=== PATIENT | female | born 1955 | race Caucasian/White ===

== ENCOUNTER → 2021-12-30 12:51 | Outpatient (BNVA) | payer MEDICARE, SELFPAY | PROVIDERS: PCP Internal Medicine; Visit Provider Physician Assistant | DX: E66.9 Obesity, unspecified (principal); K21.9 Gastro-esophageal reflux disease without esophagitis; I10 Essential (primary) hypertension; F41.8 Other specified anxiety disorders; Z98.84 Bariatric surgery status; Z68.38 Body mass index [BMI] 38.0-38.9, adult | CPT/HCPCS: 99202 ==

== ENCOUNTER → 2022-01-14 08:03 | Outpatient (BNVA) | payer MEDICARE, SELFPAY | PROVIDERS: PCP Internal Medicine; Visit Provider Physician Assistant | DX: K95.09 Other complications of gastric band procedure (principal) | CPT/HCPCS: Q3014 ==

== ENCOUNTER 2022-01-18 12:36 | Day surgery (SDC) | payer MEDICARE, SELFPAY ==
--- NOTE | 2022-01-18 12:56 | MHC.SHP ---
Pre-Procedural Eval Section A Date of Service: 01/18/22 The patient is an INPATIENT: No The History & Physical has been completed within 30 days and I have reviewed it.: Yes Section B Chief Complaint: gastric band complications Relevant Family History (Specify if Yes): No Relevant Social History: None Present Medications: None Medical History: No relevant PMH History of Previous Operations: Relevant previous surgery/procedure and date(s) (lap gastric band) Allergies: Allergies Allergy/AdvReac Type Severity Reaction Status Date / Time No Known Allergies Allergy Verified 12/30/21 14:03 Review of Systems Sugical H&P ROS: Negative: Constitution, Cardiovascular, Respiratory, Neurological, Psychiatric, Hem-Onc, Allergic/Immunologic, Gastrointestinal, Genitourinary, Musculoskeletal, Integumentary, Endocrine and Eyes/Ears/Nose/Throat Exam Surgical H&P Exam: Normal: HEENT, Normal: Heart, Normal: Lungs, Normal: Extremities, Normal: Abdomen, Normal: Skin and Normal: Neurological Plan Diagnosis/Plan: Unchanged (EGD to assess for band slippage and band erosion. The possibility of bleeding or perforation were disucssed with the patient) I have reviewed the history and physical and performed a pertinent physical examination on my patient. No changes have occurred unless specified.
[2022-01-18 13:45] VITALS: BMI 36.8
[2022-01-18 13:47] VITALS: BP 131/71; PULSE 87; RESP 16; TEMP 36.1; O2SAT 100
[2022-01-18] MEDS: Lactated Ringers 1,000 ML 80 ML IVCONT (14:03)
--- NOTE | 2022-01-18 14:04 | P.CONAN_ITS ---
Documented by User: Enzo Osei MD 01/18/22 14:07 HPI - Anesthesia Eval Consult details Narrative: 66 F for EGD PMFSH Active Problems Active Problems: All Active Problems (Updated 01/14/22 @ 11:00 by Anca Mcduffie PA-C) Gastric band malfunction (Acute) GERD (gastroesophageal reflux disease) (Acute) H/O laparoscopic adjustable gastric banding (Acute) Anxious depression (Acute) HTN (hypertension), benign (Acute) Obesity (Acute) Past Medical History Functional capacity: independent ambulation Family History Family History (Updated 12/30/21 @ 13:41 by Tammie Lindsey) Mother Hypertension Glaucoma Brother History of heart artery stent Brother History of heart artery stent Brother History of heart artery stent Family history of problems with anesthesia: No Surgical History Surgical History (Updated 12/30/21 @ 14:15 by Anca Mcduffie PA-C) H/O laparoscopic adjustable gastric banding History of cholecystectomy Social History Social History (Updated 12/30/21 @ 13:39 by Tammie Lindsey) Alcohol intake: former Patient Tobacco Use Status: Never used Tobacco Use of substances other than those prescribed or required for medical reasons: No Advance Directives: No Advance Directives Information Provided: Yes Meds Allergies Allergy/AdvReac Type Severity Reaction Status Date / Time No Known Allergies Allergy Verified 01/18/22 13:44 Active Medications: Current Medications Lactated Ringer's (Lr) 1,000 mls @ 80 mls/hr IVCONT .[id number] AUBREY Last Admin: 01/18/22 14:03 Dose: 80 mls/hr Documented by: Home Medications Medication Instructions Recorded Confirmed Last Taken Type bupropion HCl 300 mg 24 hr tablet, 300 mg PO QAM 12/30/21 01/14/22 Unknown History extended release (Wellbutrin XL) famotidine 40 mg tablet (Pepcid) 40 mg PO DAILY 12/30/21 01/14/22 Unknown History ferrous sulfate 325 mg (65 mg 325 mg PO DAILY 12/30/21 01/14/22 01/15/22 History iron) tablet (Feosol) hydrochlorothiazide 25 mg tablet 25 mg PO DAILY 12/30/21 01/14/22 Unknown History lansoprazole 30 mg capsule,delayed 30 mg PO DAILY 12/30/21 01/14/22 Unknown History release (Prevacid) losartan 100 mg tablet 100 mg PO DAILY 12/30/21 01/14/22 Unknown History losartan 100 1 tab PO DAILY 01/14/22 01/14/22 Unknown History mg-hydrochlorothiazide 25 mg tablet Exam Exam Date and Time: January 18, 2022 1404 Height,Weight and Vital Signs: Height 5 ft 4 in Weight 97.522 kg Last Vital Signs Temp 97.0 F 01/18/22 13:47 Pulse 87 01/18/22 13:47 Resp 16 01/18/22 13:47 BP 131/71 01/18/22 13:47 Pulse Ox 100 01/18/22 13:47 Airway Mallampati Class: II TM Dist: >3cm Loose/Missing/Broken Teeth: Yes Assessment and Plan Assessment Anesthesia Assessment: Anesthesia Plan Discussed Final Anesthetic Review Family History of Problems with Anesthesia: No ASA Class: III Final Preanesthetic Review: Meds/Allgs Chart Reviewed and Anes Risks/Benef Reviewed Patient Risk: High Procedure Risk: Intermediate Anesthetic Plan Anesthetic Plan: MAC: Disposition: Standard PACU Documented by User: Comfort Purcell MD 01/18/22 14:22 [facility] Family History Family History (Updated 12/30/21 @ 13:41 by Tammie Lindsey) Mother Hypertension Glaucoma Brother History of heart artery stent Brother History of heart artery stent Brother History of heart artery stent Surgical History Surgical History (Updated 12/30/21 @ 14:15 by Anca Mcduffie PA-C) H/O laparoscopic adjustable gastric banding History of cholecystectomy History of Problems with Anesthesia: No Social History Social History (Updated 12/30/21 @ 13:39 by Tammie Lindsey) Alcohol intake: former Patient Tobacco Use Status: Never used Tobacco Use of substances other than those prescribed or required for medical reasons: No Advance Directives: No Advance Directives Information Provided: Yes Meds Allergies Allergy/AdvReac Type Severity Reaction Status Date / Time No Known Allergies Allergy Verified 01/18/22 13:44 Home Medications Medication Instructions Recorded Confirmed Last Taken Type bupropion HCl 300 mg 24 hr tablet, 300 mg PO QAM 12/30/21 01/14/22 Unknown History extended release (Wellbutrin XL) famotidine 40 mg tablet (Pepcid) 40 mg PO DAILY 12/30/21 01/14/22 Unknown History ferrous sulfate 325 mg (65 mg 325 mg PO DAILY 12/30/21 01/14/22 01/15/22 History iron) tablet (Feosol) hydrochlorothiazide 25 mg tablet 25 mg PO DAILY 12/30/21 01/14/22 Unknown History lansoprazole 30 mg capsule,delayed 30 mg PO DAILY 12/30/21 01/14/22 Unknown History release (Prevacid) losartan 100 mg tablet 100 mg PO DAILY 12/30/21 01/14/22 Unknown History losartan 100 1 tab PO DAILY 01/14/22 01/14/22 Unknown History mg-hydrochlorothiazide 25 mg tablet Exam Airway Neck ROM: Full Heart: rrr Lungs: cta Assessment and Plan Assessment Anesthesia Assessment: Anesthesia Plan Discussed and Chart Reviewed Final Anesthetic Review History of Problems with Anesthesia: No NPO: Yes Patient Risk: Intermediate
[2022-01-18 15:10] VITALS: BP 124/73; PULSE 72; RESP 16; TEMP 36.3; O2SAT 97
--- NOTE | 2022-01-18 15:11 | PM.OP ---
Brief Operative Note Date of Service: 01/18/22 Pre-op diagnosis: Vomiting and possible gastric band erosion Post-op diagnosis: same (1) Significant gastric band slippage, 2) esophagitis grade 4, 3) gastric polyps) Procedure: PREOPERATIVE DIAGNOSIS: GERD, vomiting and possible gastric band erosion, s/p lap band POSTOPERATIVE DIAGNOSIS: ?Same as above. 1) Significant gastric band slippage, 2) Esophagitis grade IV, 3) multiple gastric polyps, 4) gastric outlet obstruction at the band site PROCEDURE: [id number]-kwehnddvcamb with biopsies Surgeon: ?Malcolm Dorman M.D.. Ph.D. Patient Account Analyst: None ? Anesthesia: IV sedation Estimated blood loss: ?Minimal FINDINGS AND PROCEDURE: ? OPERATIVE INDICATIONS: ?The patient is a 66 year old female known to me who underwent a laparoscopic gastric band By Dr. Garsia. The patient had poor weight loss so far and has been complaining of severe GERD, and vomiting. Previous work-up is suggestive of band slippage and possible band erosion. Based on this information I recommended an upper endoscopy to evaluate the patient's symptoms. Risks and complications of the surgery were discussed with the patient in advance particularly the possibility of perforation or bleeding that may require surgical intervention. The patient understood the risks and was in agreement with the plan. ? PROCEDURE: After informed consent was obtained by the patient, the patient was ?transferred to the Operating Room and was placed in the supine position.? After successful induction of IV sedation, a mouth block was inserted and the patient was placed in the left lateral decubitus position. An upper endoscopy was performed next, the oropharynx appeared within the normal limits. The esophagus had evidence of chronic inflammation and there was a significant amount of fluid in a good portion of it suggestive of distal obstruction. This fluid was aspirated. A biopsy was obtained. There was no hiatal hernia. The z-line was irregular with tongues of gastric mucosa protruding to the esophagus in more than 75% of circumference.?A biopsy was obtained from the GE junction. The stomach was entered and it appeared to be of normal size. There was no band erosion, ?gastritis and no ulcer. However the band was not in the right position with a significant portion of stomach above the band. The distal stomach has numerous gastric polyps and one of the most prominent ones was biopsied. An additional biopsy was obtained from the antrum. The scope was advanced into the duodenum which appeared to be normal as well. Retroflexion was performed and again no band erosion was seen. There was no significant bleeding from any of the biopsy sites. At that point the duodenum and the stomach were decompressed and the scope was withdrawn from the patient's mouth. The patient was awaken and was transferred in stable condition to the Recovery Room for further care. I was present and performed all steps of the procedure. There were no residents to assist with this case. Malcolm Dorman M.D., Ph.D. Surgeon: Maynor Dorman MD Anesthesia: MAC Was an Patient Account Analyst used for this Procedure?: No Estimated blood loss (mL): 0 IV fluids (mL): 400 Urine output (mL): 0 (No Weems to record) Pathology: other (1) esophagus x1, 2) GE junctionx1, 3) proximal gastric pouch x1, 4) gastric polyp x1, 5) antrum x1) Condition: stable Disposition: PACU
[2022-01-18 15:25] VITALS: BP 116/71; PULSE 71; RESP 16; TEMP 36.3; O2SAT 100
== END 2022-01-18 15:23 | disposition home or self-care (01) ==
PROVIDERS: PCP Internal Medicine; Visit Provider Surgery
PROC: 0DJ08ZZ Inspection of Upper Intestinal Tract, Via Natural or Artificial Opening Endoscopic (ICD-10-PCS; CPT 43235; principal; 2022-01-18 14:00)
DX: K95.09 Other complications of gastric band procedure (principal); Y73.8 Miscellaneous gastroenterology and urology devices associated with adverse incidents, not elsewhere classified; Y84.9 Medical procedure, unspecified as the cause of abnormal reaction of the patient, or of later complication, without mention of misadventure at the time of the procedure; R11.10 Vomiting, unspecified; K21.9 Gastro-esophageal reflux disease without esophagitis; K20.80 Other esophagitis without bleeding; K31.7 Polyp of stomach and duodenum; K31.1 Adult hypertrophic pyloric stenosis; Z79.899 Other long term (current) drug therapy; Z98.84 Bariatric surgery status; Z90.49 Acquired absence of other specified parts of digestive tract
CPT/HCPCS: 43239; 88305; 88342

== ENCOUNTER → 2022-01-22 10:58 | Outpatient (BNVA) | payer MEDICARE, SELFPAY | PROVIDERS: PCP Internal Medicine; Visit Provider Surgery | DX: Z13.89 Encounter for screening for other disorder (principal) | CPT/HCPCS: Q3014 ==

== ENCOUNTER 2022-01-25 08:48 | Day surgery (SDC) | payer MEDICARE, SELFPAY ==
--- NOTE | 2022-01-22 14:57 | P.HPSUR_ITS ---
Pre-Procedural Eval Section A Date of Service: 01/22/22 The patient is an INPATIENT: No The History & Physical has been completed within 30 days and I have reviewed it.: Yes Section B Chief Complaint: Other complications of gastric band procedure Relevant Family History (Specify if Yes): No Relevant Social History: None Present Medications: None Medical History: No relevant PMH History of Previous Operations: Relevant previous surgery/procedure and date(s) (lap band) Allergies: Allergies Allergy/AdvReac Type Severity Reaction Status Date / Time No Known Allergies Allergy Verified 01/22/22 14:38 Review of Systems Sugical H&P ROS: Negative: Constitution, Cardiovascular, Respiratory, Neurological, Psychiatric, Hem-Onc, Allergic/Immunologic, Genitourinary, Musculoskeletal, Integumentary, Endocrine and Eyes/Ears/Nose/Throat and Yes, Specify: Gastrointestinal (GERD/Vomiting) Exam Surgical H&P Exam: Normal: HEENT, Normal: Heart, Normal: Lungs, Normal: Ext remities, Normal: Abdomen, Normal: Skin and Normal: Neurological Plan Diagnosis/Plan: Unchanged I have reviewed the history and physical and performed a pertinent physical examination on my patient. No changes have occurred unless specified.
[2022-01-23 09:55] LABS: MANUAL DIFF FLAG NO
[2022-01-23 10:05] LABS: Basophils Percent Auto 0.5 % (0-2); Eosinophils Absolute Auto 0.1 X10*3/uL (0.0-0.4); Eosinophils Percent Auto 1.6 % (0-4); Hematocrit 36.8 % (37.0-47.0); Hemoglobin 11.3 g/dl (12.0-16.0); Imm Gran Abs Auto 0.02 X10*3/uL (0.00-0.03); Imm Gran Pct Auto 0.3 % (0.0-0.4); Lymphocytes Absolute Auto 1.6 X10*3/uL (1.2-4.9); Lymphocytes Percent Auto 27.9 % (20-40); Mean Corpuscular HGB Conc 30.7 g/dl (31.0-35.0); Mean Corpuscular Hemoglobin 23.3 pg (27.0-33.0); Mean Corpuscular Volume 75.7 fL (80.0-98.0); Mean Platelet Volume 9.2 fL (9.4-12.3); Monocytes Absolute Auto 0.3 X10*3/uL (0.1-1.2); Monocytes Percent Auto 5.9 % (2-11); Neutrophils Absolute Auto 3.7 x10*3/uL (2.0-8.3); Neutrophils Percent Auto 63.8 % (45-73); Platelet Count 382 X10*3/uL (160-400); Red Blood Count 4.86 X10*6/uL (4.20-5.50); White Blood Count 5.8 X10*3/uL (4.8-10.8)
[2022-01-23 10:08] LABS: Prothrombin Time 11.5 SEC (9.9-13.0)
[2022-01-23 10:29] LABS: Alanine Aminotransferase 13 U/L (0-31); Alkaline Phosphatase 86 U/L (39-117); Anion Gap 14 (12-20); Aspartate Amino Transferase 17 U/L (5-31); Bilirubin Total 0.4 mg/dL (0.0-1.0); Blood Urea Nitrogen 13 mg/dL (9-16); Calcium 9.4 mg/dL (8.4-10.2); Carbon Dioxide 24 mmol/L (22-29); Chloride 104 mmol/L (96-108); Estimated Glomerular Filt Rate 55; Glucose Random 101 mg/dL (60-115); Potassium 3.3 mmol/L (3.3-5.1); Sodium 139 mmol/L (135-145); Total Protein 6.9 g/dL (6.5-8.0)
[2022-01-25] VITALS (12 sets, daily range): BP systolic 106–137; BP diastolic 52–81; PULSE 73–89; RESP 15–16; TEMP 36.3–36.6; O2SAT 91–99; BMI 36.8
[2022-01-25 09:31] LABS: COVID-19 Test Negative (Negative)
--- NOTE | 2022-01-25 10:50 | HO.ANESPROP2 ---
HPI - Anesthesia Eval Consult details Narrative: Laparascopic lap band removal [facility] Active Problems Active Problems: All Active Problems (Updated 01/23/22 @ 12:17 by Maynor Dorman MD) Hypokalemia (Acute) Gastric band malfunction (Acute) GERD (gastroesophageal reflux disease) (Acute) H/O laparoscopic adjustable gastric banding (Acute) Anxious depression (Acute) HTN (hypertension), benign (Acute) Obesity (Acute) Family History Family History (Updated 12/30/21 @ 13:41 by Tammie Lindsey) Mother Hypertension Glaucoma Brother History of heart artery stent Brother History of heart artery stent Brother History of heart artery stent Family history of problems with anesthesia: No Surgical History Surgical History (Updated 12/30/21 @ 14:15 by Anca Mcduffie PA-C) H/O laparoscopic adjustable gastric banding History of cholecystectomy History of Problems with Anesthesia: No Social History Social History (Updated 12/30/21 @ 13:39 by Tammie Lindsey) Alcohol intake: former Patient Tobacco Use Status: Never used Tobacco Are you DNR?: No Advance Directives: No Advance Directives Information Provided: Yes Meds Allergies Allergy/AdvReac Type Severity Reaction Status Date / Time No Known Allergies Allergy Verified 01/22/22 14:38 Active Medications: Current Medications Lactated Ringer's (Lr) 1,000 mls @ 100 mls/hr IVCONT .Q10H ON LICENSE OF [facility] Home Medications Medication Instructions Recorded Confirmed Last Taken Type bupropion HCl 300 mg 24 hr tablet, 300 mg PO QAM 12/30/21 01/22/22 Unknown History extended release (Wellbutrin XL) famotidine 40 mg tablet (Pepcid) 40 mg PO DAILY 12/30/21 01/22/22 Unknown History ferrous sulfate 325 mg (65 mg 325 mg PO DAILY 12/30/21 01/22/22 01/15/22 History iron) tablet (Feosol) hydrochlorothiazide 25 mg tablet 25 mg PO DAILY 12/30/21 01/22/22 Unknown History lansoprazole 30 mg capsule,delayed 30 mg PO DAILY 12/30/21 01/22/22 Unknown History release (Prevacid) losartan 100 mg tablet 100 mg PO DAILY 12/30/21 01/22/22 Unknown History losartan 100 1 tab PO DAILY 01/14/22 01/22/22 01/25/22 History mg-hydrochlorothiazide 25 mg tablet Exam Exam Date and Time: January 25, 2022 1050 Height,Weight and Vital Signs: Height 5 ft 4 in Weight 97.522 kg Last Vital Signs Temp 97.6 F 01/25/22 09:14 Pulse 89 01/25/22 09:14 Resp 16 01/25/22 09:14 BP 137/81 01/25/22 09:14 Pulse Ox 97 01/25/22 09:14 Pertinent Lab Results Pertinent Lab Results: Laboratory Tests 01/23/22 01/23/22 01/23/22 09:51 09:53 09:53 WBC 5.8 RBC 4.86 Hgb 11.3 L Hct 36.8 L MCV 75.7 L MCH 23.3 L MCHC 30.7 L RDW 18.0 H Plt Count 382 MPV 9.2 L Immature Gran % (Auto) 0.3 Neut % (Auto) 63.8 Lymph % (Auto) 27.9 Dickinson % (Auto) 5.9 Eos % (Auto) 1.6 Baso % (Auto) 0.5 Lymph # (Auto) 1.6 Dickinson # (Auto) 0.3 Eos # (Auto) 0.1 Baso # (Auto) 0.0 Abs Immat Gran (auto) 0.02 Absolute Neuts (auto) 3.7 Absolute Nucleated RBC 0.000 Nucleated RBC % (auto) 0.0 PT 11.5 INR 1.0 APTT 32.0 Sodium Potassium Chloride Carbon Dioxide Anion Gap BUN Creatinine Estim Creat Clear Calc Estimated GFR Random Glucose Calcium Total Bilirubin AST ALT Alkaline Phosphatase Total Protein Albumin COVID-19 (GENE) COVID-19 Clin Com Blood Type O Positive Antibody Screen NEGATIVE 01/23/22 01/25/22 09:53 08:55 WBC RBC Hgb Hct MCV MCH MCHC RDW Plt Count MPV Immature Gran % (Auto) Neut % (Auto) Lymph % (Auto) Dickinson % (Auto) Eos % (Auto) Baso % (Auto) Lymph # (Auto) Dickinson # (Auto) Eos # (Auto) Baso # (Auto) Abs Immat Gran (auto) Absolute Neuts (auto) Absolute Nucleated RBC Nucleated RBC % (auto) PT INR APTT Sodium 139 Potassium 3.3 Chloride 104 Carbon Dioxide 24 Anion Gap 14 BUN 13 Creatinine 1.00 Estim Creat Clear Calc TNP Estimated GFR 55 Random Glucose 101 Calcium 9.4 Total Bilirubin 0.4 AST 17 ALT 13 Alkaline Phosphatase 86 Total Protein 6.9 Albumin 4.0 COVID-19 (GENE) Negative COVID-19 Clin Com See Note Blood Type Antibody Screen Airway Mallampati Class: II TM Dist: >3cm Neck ROM: Full Loose/Missing/Broken Teeth: No Heart: [id number] Lungs: cta b/l Assessment and Plan Assessment Anesthesia Assessment: Anesthesia Plan Discussed and Chart Reviewed Final Anesthetic Review Family History of Problems with Anesthesia: No History of Problems with Anesthesia: No NPO: Yes ASA Class: III Final Preanesthetic Review: No Changes in Pt Med Stat, Meds/Allgs Chart Reviewed, Consent Obtained/Reviewed and Anes Risks/Benef Reviewed Patient Risk: Intermediate Procedure Risk: Intermediate Assessment/Block/Sedation in SS: Assess/Block/Sedation-SS Anesthetic Plan Anesthetic Plan: GA and Agree w/ Assess. and Plan Disposition: Standard PACU
--- NOTE | 2022-01-25 10:50 | PM.OP ---
Brief Operative Note Date of Service: 01/25/22 Pre-op diagnosis: Slipped gastric band, gastric outlet obstruction, esophagitis Post-op diagnosis: same (& abdominal adhesions) Procedure: PROCEDURE: Esophago-gastroscopy, laparoscopic lysis of adhesions, laparoscopic removal of gastric band and accessories INDICATIONS: This is a 66 year-old female with a BMI of 48.92 kg/m2 and associated comorbid conditions as described previously. The patient has inadequate weight loss and persistent vomiting and severe GERD. Recent EGD and UGI were suggestive of a slipped gastric band. The patient was electively scheduled for laparoscopic, possibly open removal of the gastric band and its accessories. The risks and complications of the procedure were discussed with the patient in advance, particularly the possibility of ; pulmonary embolism; leak; bleeding; GERD; cardiac, pulmonary, or renal complications. The patient understood all the risks, and was in agreement to proceed with surgery. DESCRIPTION OF PROCEDURE: After informed consent was obtained from the patient, the patient was given preoperative antibiotics, and was transferred to the operating room. After successful induction of general anesthesia, pneumatic compressive devices were placed on both lower extremities. The patient was then prepped and draped in the usual sterile manner, and abdominal access was established at the right upper quadrant with the Soren technique. A 12 mm blunt port was inserted, and the abdomen was insufflated with CO2 to a pressure of 15 mmHg. Under direct visualization, additional ports were placed, specifically two 5 mm Versi-step ports to the left upper quadrant, and a 5 mm Versi-Step port to the right upper quadrant. 1% lidocaine plan was used to infiltrate all port sites as well as all fascia defects. Following that, the patient was placed in a steep reverse Trendelenburg position. An additional 5 mm port was placed to the right flank for the Mediflex retractor that was used to retract the left lobe of the liver. There were adhesions in the abdomen from previous lap band and open cholecystectomy involving the omentum, the falciform ligament and abdominal wall. An additional, extra 5 mm Versi-step port was placed to the left mid-flank to facilitate the lysis of the extensive abdominal adhesions. Those were lysed completely with the ultrasonic device (Thunderbeat, Olympus). The patient has a large AP gastric band. It was identified and using the Thunderbeat, the capsule was opened and the band was freed from surrounding tissues. Once it was adequately mobile, it was cut and was removed from the Soren port along with the intra-abdominal portion of the tubing system. The Mediflex retractor was removed, and the undersurface of the liver was inspected and there was no bleeding. The patient was placed in supine position. There was no bleeding around the stomach or at the omentum I dissected from the abdominal wall. I was able to remove the band's port from the same incision we used for the Soren port. Using cautery the subcutaneous tissues were divided until the port was identified. This particular port is secured with Ethibond sutures. All sutures were cut and all of them were retrieved completely from the wound. The remaining tubing system was delivered first and then slowly the four hooks were detached from the fascia and the port with tubing system were retrieved intact. I closed the fascial defect of the 12 mm port site with a figure of eight #1 Polysorb suture. Then 100 cc 0.25 % Marcaine plain with 10 mg of Dexamethasone were used to infiltrate the fascial closure as well as all skin incisions. in addition, 7ml of Zynrelef was placed in the Soren port wound. At this point, the abdomen was deflated, all ports were removed under direct vision, and no bleeding was noted from any of the port sites. The skin incisions were irrigated with saline and were closed with 4-0 absorbable monofilament sutures. Steri-Strips and OpSites were used to cover all incisions. The patient was extubated and was transferred in stable condition to the recovery room for further care. I was present and performed all parikh parts of the procedure. Mr. Mendez was the first officer and flight instructor. There were no residents to assist with this case. Malcolm Dorman MD, PhD, FACS Surgeon: Maynor Dorman MD Anesthesia: GETA, local and other (TAP block and 7ml Zynrelef) Was an Teletype Operator used for this Procedure?: No Teletype Operator: Alejo Mendez Estimated blood loss (mL): 10 IV fluids (mL): 1,500 Pathology: other (gastric band and accessories) Condition: stable Disposition: PACU
== END 2022-01-25 15:19 | disposition home or self-care (01) ==
PROVIDERS: PCP Internal Medicine; Visit Provider Surgery
PROC: (CPT 43774; principal; 2022-01-25 10:20)
DX: K59.09 Other constipation (principal); K31.1 Adult hypertrophic pyloric stenosis; K20.80 Other esophagitis without bleeding; K66.0 Peritoneal adhesions (postprocedural) (postinfection); K21.9 Gastro-esophageal reflux disease without esophagitis; R11.10 Vomiting, unspecified; I10 Essential (primary) hypertension; E66.9 Obesity, unspecified; Z68.42 Body mass index [BMI] 45.0-49.9, adult; Z79.899 Other long term (current) drug therapy; Z98.84 Bariatric surgery status; Z90.49 Acquired absence of other specified parts of digestive tract; Z20.822 Contact with and (suspected) exposure to COVID-19
CPT/HCPCS: 43774; 36415; 80053; 85025; 85610; 85730; 86850; 86900; 86901; 87635; 88300; C9399; J0131; J0690; J1100; J2250; J2405; J3010

== ENCOUNTER → 2022-02-04 14:48 | Outpatient (BNVA) | payer MEDICARE, SELFPAY | PROVIDERS: PCP Internal Medicine; Visit Provider Physician Assistant Surgical | DX: Z48.815 Encounter for surgical aftercare following surgery on the digestive system (principal); K95.09 Other complications of gastric band procedure | CPT/HCPCS: 99212 ==

== ENCOUNTER → 2022-05-13 08:53 | Outpatient (BNVA) | payer MEDICARE, SELFPAY | PROVIDERS: PCP Internal Medicine; Visit Provider Physician Assistant | DX: Z01.818 Encounter for other preprocedural examination (principal); I10 Essential (primary) hypertension; Z86.010 Personal history of colon polyps | CPT/HCPCS: 99202; 99212 ==

== ENCOUNTER → 2022-05-28 10:32 | Outpatient (BNVA) | payer MEDICARE, SELFPAY | PROVIDERS: PCP Internal Medicine; Visit Provider Physician Assistant | DX: Z01.818 Encounter for other preprocedural examination (principal); E66.9 Obesity, unspecified; I10 Essential (primary) hypertension; Z98.84 Bariatric surgery status; Z68.41 Body mass index [BMI] 40.0-44.9, adult | CPT/HCPCS: 99212 ==

== ENCOUNTER 2022-06-02 08:36 | Outpatient (REF) | payer MEDICARE, SELFPAY ==
--- NOTE | ~2022-06-02 | XR_ITS ---
EXAMINATION: XR CHEST CLINICAL INFORMATION: Bariatric surgery status COMPARISON: CTA chest May 2021 TECHNIQUE: 2 views of the chest were obtained. FINDINGS: No significant abnormality is noted involving the heart, lungs, mediastinum, bony thorax or soft tissues. XR/XR chest 2V IMPRESSION: Unremarkable examination.
--- NOTE | 2022-06-02 08:48 | ECG_ITS ---
Test Reason : bariatric status Blood Pressure : / mmHG Vent. Rate : 077 BPM Atrial Rate : 077 BPM P-R Int : 212 ms QRS Dur : 092 ms QT Int : 392 ms P-R-T Axes : 023 -06 066 degrees QTc Int : 443 ms Sinus rhythm with 1st degree A-V block Inferior infarct ,age undetermined Abnormal ECG No previous ECGs available Referred By: Anca Mcduffie Electronically Signed By:RONNI FABIAN
[2022-06-02 08:59] LABS: MANUAL DIFF FLAG NO
[2022-06-02 09:08] LABS: Basophils Percent Auto 0.5 % (0-2); Eosinophils Absolute Auto 0.1 X10*3/uL (0.0-0.4); Eosinophils Percent Auto 1.4 % (0-4); Hematocrit 42.5 % (37.0-47.0); Hemoglobin 13.4 g/dl (12.0-16.0); Imm Gran Abs Auto 0.01 X10*3/uL (0.00-0.03); Imm Gran Pct Auto 0.2 % (0.0-0.4); Lymphocytes Absolute Auto 2.1 X10*3/uL (1.2-4.9); Lymphocytes Percent Auto 31.5 % (20-40); Mean Corpuscular HGB Conc 31.5 g/dl (31.0-35.0); Mean Corpuscular Volume 79.3 fL (80.0-98.0); Monocytes Absolute Auto 0.5 X10*3/uL (0.1-1.2); Monocytes Percent Auto 8.2 % (2-11); Neutrophils Absolute Auto 3.8 x10*3/uL (2.0-8.3); Neutrophils Percent Auto 58.2 % (45-73); Platelet Count 374 X10*3/uL (160-400); Red Blood Count 5.36 X10*6/uL (4.20-5.50); Red Cell Distribution Width 18.7 % (11.0-16.0); White Blood Count 6.5 X10*3/uL (4.8-10.8)
[2022-06-02 09:33] LABS: Estimated Average Glucose 105 mg/dL; Hemoglobin A1c % 5.3 %
[2022-06-02 09:53] LABS: Alanine Aminotransferase 26 U/L (0-31); Albumin Level 4.5 g/dL (3.5-5.0); Alkaline Phosphatase 105 U/L (39-117); Anion Gap 17 (12-20); Aspartate Amino Transferase 19 U/L (5-31); Bilirubin Total 0.7 mg/dL (0.0-1.0); Blood Urea Nitrogen 25 mg/dL (9-16); C Reactive Protein 0.46 mg/dL (< or = 0.50); Calcium 9.6 mg/dL (8.4-10.2); Carbon Dioxide 25 mmol/L (22-29); Chloride 100 mmol/L (96-108); Cholesterol 208 mg/dL; Estimated Glomerular Filt Rate 56; Glucose Random 100 mg/dL (60-115); HDL Cholesterol 47 mg/dL; Iron 70 mcg/dL (30-160); LDL Cholesterol Calculated 135 mg/dl; Percent Iron Saturation 14 % (15-50); Potassium 3.6 mmol/L (3.3-5.1); Sodium 138 mmol/L (135-145); Total Iron Binding Capacity 508 mcg/dL (228-428); Total Protein 7.7 g/dL (6.5-8.0); Triglycerides 132 mg/dL; Unsaturated Iron Binding 438 ug/dL
[2022-06-02 10:07] LABS: Ferritin 23 ng/mL (10-250); TSH reflex Free T4 0.69 uIU/mL (0.32-4.0); Vitamin D 25-OH Total 24.6 ng/mL (>30)
[2022-06-02 10:39] LABS: Insulin 21 uU/mL (2-29)
[2022-06-02 10:50] LABS: Folate 18.8 ng/mL (> or = 4.0); Vitamin B12 286 pg/mL (200-900)
[2022-06-03 14:03] LABS: Calcium (PTHI) 9.6 mg/dL (8.6-10.4); PTHI 103 pg/mL (16-77)
[2022-06-05 20:52] LABS: Vitamin A 55 mcg/dL (38-98)
[2022-06-06 18:55] LABS: Zinc 79 mcg/dL (60-130)
== END 2022-06-02 08:37 | disposition home or self-care (01) ==
LOC: HO.XRAY 08:36
PROVIDERS: PCP Internal Medicine; Visit Provider Physician Assistant
DX: Z01.818 Encounter for other preprocedural examination (principal); E66.9 Obesity, unspecified; I10 Essential (primary) hypertension; Z98.84 Bariatric surgery status
CPT/HCPCS: 36415; 71046; 80053; 80061; 82306; 82607; 82728; 82746; 83036; 83525; 83540; 83970; 84425; 84443; 84590; 84630; 85025; 86140; 93005

== ENCOUNTER → 2022-06-18 10:20 | Outpatient (BNVA) | payer MEDICARE, SELFPAY | PROVIDERS: PCP Internal Medicine; Visit Provider Physician Assistant | DX: Z11.0 Encounter for screening for intestinal infectious diseases (principal); E66.9 Obesity, unspecified; R94.31 Abnormal electrocardiogram [ECG] [EKG]; Z98.84 Bariatric surgery status; Z68.41 Body mass index [BMI] 40.0-44.9, adult | CPT/HCPCS: 99211; 99212 ==

== ENCOUNTER 2022-06-18 16:24 | Outpatient (REF) | payer MEDICARE, SELFPAY ==
[2022-06-20 14:40] LABS: H Pylori Breath Test Negative (Negative)
== END 2022-06-18 16:25 | disposition home or self-care (01) ==
LOC: HO.LNP 16:24
PROVIDERS: Visit Provider Physician Assistant
DX: A04.8 Other specified bacterial intestinal infections (principal)
CPT/HCPCS: 83013

== ENCOUNTER → 2022-06-21 10:32 | Outpatient (BNVA) | payer MEDICARE, SELFPAY | PROVIDERS: PCP Internal Medicine; Visit Provider Dietitian, Registered | DX: E66.01 Morbid (severe) obesity due to excess calories (principal); Z98.84 Bariatric surgery status; Z71.3 Dietary counseling and surveillance | CPT/HCPCS: 97802 ==

== ENCOUNTER → 2022-06-23 11:00 | Outpatient (BNVA) | payer MEDICARE, SELFPAY | PROVIDERS: Visit Provider Counselor Mental Health | DX: F41.1 Generalized anxiety disorder (principal); E66.9 Obesity, unspecified; Z98.84 Bariatric surgery status | CPT/HCPCS: 90791 ==

== ENCOUNTER → 2022-07-06 08:35 | Outpatient (REF) | payer MEDICARE, SELFPAY ==
--- NOTE | 2022-07-06 08:38 | CA_ITS ---
Acquisition Time: 2022-07-06 08:50:57 Total Exercise Time: 00:05:01 Test Indications: Abnormal ECG Medications: Protocol: ALEXANDRE Max HR: 164 BPM 107% of Pred: 152 BPM Max BP: 154/084 mmHG Max Work Load: 5.8 METS Exercise stress test with exercise 5 min 1 sec of Alexandre protocol ( speed reduced to 2 MPH for last minute), achieving > 100% MPHR, with moderate sob and fatigue, no chest discomfort, without arrythmia, with normotensive and brisk chronotropic response to exercise, without EKG changes meeting criteria for ischemia. Test reviewed with Dr Torres. Referred By: Anca Mcduffie Overread By: SHELBY GARCIA
== END ==
LOC: HO.CARD 08:35
PROVIDERS: PCP Internal Medicine; Visit Provider Physician Assistant
DX: Z01.818 Encounter for other preprocedural examination (principal); R94.31 Abnormal electrocardiogram [ECG] [EKG]; I10 Essential (primary) hypertension; E66.9 Obesity, unspecified
CPT/HCPCS: 93017

== ENCOUNTER → 2022-07-13 09:03 | Outpatient (REF) | payer MEDICARE, SELFPAY ==
--- NOTE | 2022-07-13 09:06 | CA_ITS ---
Transthoracic Echocardiogram Patient (Last, First, Middle): Elvira Craig, Gender: Female Date of : 1955 Age: 67 Procedure Date: 07/13/2022 Procedure Type: Transthoracic Echocardiogram Location: OP Height: 160.02 cm Weight: 107.05 kg BSA: 2.07 m2 Heart Rate: 72 bpm BP: 141 / 74 mmHg Finance Director: MONAE Referring MD: Anca Mcduffie PA-C Picker And Packer: Wm Ulrich MD Symptoms: R94.31 - Abnormal electrocardiogram [ECG] [EKG] Study Quality: Technically Difficult/Contrast ECG Rhythm: Sinus Conclusions: - 1. Technically limited study despite use of contrast agent 2. LV systolic function appears to be normal with LVEF of 55-60% with impaired relaxation filling pattern 3. Poor visualization of cardiac valves with cardiac valvular Doppler within normal limits Findings Procedure Information Contrast agent, definity, is being given per protocol without apparent complications. Left Ventricle Normal left ventricular size, thickness, and systolic function. The visually estimated ejection fraction is between 55-60%. Regional wall motion abnormalities can not be excluded due to suboptimal endocardial definition. Spectral Doppler is indicative of an impaired relaxation filling pattern. Right Ventricle The right ventricle was not well visualized. Atria The left atrium was not well visualized. The right atrium was not well visualized. Aortic Valve The aortic valve was not well visualized. There is no aortic valve stenosis. There is no aortic valve regurgitation. Mitral Valve The mitral valve was not well visualized. There is no mitral valve regurgitation. There is no mitral valve stenosis. Pulmonic Valve The pulmonic valve was not well visualized. Tricuspid Valve The tricuspid valve was not well visualized. Tricuspid regurgitation envelope is inadequate for calculation of right ventricular systolic pressure. Great Vessels All visible segments of the aorta are normal in size. The pulmonary artery was not well visualized. Venous The inferior vena cava was not well visualized. Pericardium/Pleural The pericardium was not well visualized. Prior Study Comparison No prior study available for comparison. Measurements 2D Linear Measurements IVSd: 0.79 0.6-0.9/0.6-1.0 cm LVIDd: 4.37 3.9-5.3/4.2-5.9 cm LVIDd Index: 2.11 2.4-3.2/2.2-3.1 cm/m2 LVIDs: 2.62 2.0-3.6 cm LVOT Diam: 2.00 3.0+(-)1.3 cm 2D Systolic Function EF 4C: 59.60 >55% EF 2C: 57.20 >55% EF BiP: 58.40 >55% Mitral Valve MV Pk E: 0.76 MV PK A: 0.78 MV Decel Time: 181.00 E/A: 1.00 E'Lateral: 5.55 E'Medial: 7.62 E/E' Med: 9.90 E/E' Lat: 13.70 PHT: 53.00 MVA PHT: 4.15 Decel [place]: 4.20 Aortic Valve AoV Pk [place]: 1.25 AoV Pk Grad: 6.00 BRITTNY: 2.39 LVOT LVOT Pk [place]: 0.95 LVOT Mn [place]: 0.65 LVOT VTI: 0.20 LVOT Pk Grad: 4.00 LVOT Mn Grad: 2.00 LVOT Diam: 2.00 LVOT Area: 3.14 Diastolic Function MV Pk E: 0.76 MV Pk A: 0.78 E/A: 1.00 E'Medial: 7.62 E/E' Med: 9.90 E' Laterial: 5.55 E/E' Lat: 13.70 Right Ventricle TAPSE (mm): 17.80 TVS' Chaparro: 13.30 Tricuspid Valve RA Press: 3.00 Great Vessels Aorta Sinus of Valsalva: 2.90 2.0-3.5 cm Ao Asc: 3.10 2.1-3.4 cm Updated in Other Vendor System with Status of Final Wm Ulrich MD electronically signed on 07/14/2022 3:19:49 PM with status of Final
== END ==
LOC: HO.CARD 09:03
PROVIDERS: Visit Provider Physician Assistant
DX: Z01.818 Encounter for other preprocedural examination (principal); I10 Essential (primary) hypertension; R94.31 Abnormal electrocardiogram [ECG] [EKG]; E66.9 Obesity, unspecified
CPT/HCPCS: 93306; Q9957

== ENCOUNTER → 2022-07-15 15:39 | Outpatient (BNVA) | payer MEDICARE, SELFPAY | PROVIDERS: PCP Internal Medicine; Visit Provider Internal Medicine Cardiovascular Disease | DX: Z01.810 Encounter for preprocedural cardiovascular examination (principal); I10 Essential (primary) hypertension; R94.31 Abnormal electrocardiogram [ECG] [EKG] | CPT/HCPCS: 99202 ==

== ENCOUNTER 2022-09-08 07:55 | Outpatient (REF) | payer MEDICARE, SELFPAY ==
--- NOTE | ~2022-09-08 | XR_ITS ---
EXAMINATION: XR STANDING AP KNEES XR KNEE, RIGHT CLINICAL INFORMATION: M25.561 - Pain in right knee COMPARISON: None TECHNIQUE: Standing AP view of both knees is performed along with lateral and axial patella views of the right knee. FINDINGS: Right: No fracture, dislocation, destructive process. There is mild tricompartment osteoarthritis with joint narrowing medial compartment and mild patellofemoral joint narrowing. There are marginal osteophytes from the medial lateral tibial plateau. No erosive change or chondrocalcinosis. Small suprapatellar effusion. Hoffa's fat pad appears normal. There is spurring at the extensor mechanism at insertion quadriceps tendon on patella and at both origin and insertion patella tendon. Deep infrapatellar recess is preserved. No lateralization patella. Left: There are osteoarthritic changes with medial knee joint compartment narrowing and marginal osteophytes femoral condyle and tibial plateau. No erosive change or chondrocalcinosis. There is a small oval benign ossification adjacent to the distal medial femoral condyle. A nonaggressive benign-appearing heavily sclerotic lesion overlies the diaphyseal metaphyseal junction distal femur, overall measurements 2.8 x 5.7 cm. No endosteal scalloping or periostitis or destructive process. XR/XR knee standing BI IMPRESSION: Right: -Tricompartment osteoarthritis with joint narrowing medial compartment and mild patellofemoral joint narrowing. Small suprapatellar effusion. -Spurring at extensor mechanism at insertion quadriceps tendon and insertion patella and tibia. Left: -Osteoarthritis medial knee joint compartment. -Benign-appearing heavily sclerotic lesion distal femur, overall measurements 2.8 x 5.7 cm. Recommend correlation with patient's symptoms. This could be further assessed with formal radiographs targeted to the distal left femur.
--- NOTE | ~2022-09-08 | XR_ITS ---
EXAMINATION: XR STANDING AP KNEES XR KNEE, RIGHT CLINICAL INFORMATION: M25.561 - Pain in right knee COMPARISON: None TECHNIQUE: Standing AP view of both knees is performed along with lateral and axial patella views of the right knee. FINDINGS: Right: No fracture, dislocation, destructive process. There is mild tricompartment osteoarthritis with joint narrowing medial compartment and mild patellofemoral joint narrowing. There are marginal osteophytes from the medial lateral tibial plateau. No erosive change or chondrocalcinosis. Small suprapatellar effusion. Hoffa's fat pad appears normal. There is spurring at the extensor mechanism at insertion quadriceps tendon on patella and at both origin and insertion patella tendon. Deep infrapatellar recess is preserved. No lateralization patella. Left: There are osteoarthritic changes with medial knee joint compartment narrowing and marginal osteophytes femoral condyle and tibial plateau. No erosive change or chondrocalcinosis. There is a small oval benign ossification adjacent to the distal medial femoral condyle. A nonaggressive benign-appearing heavily sclerotic lesion overlies the diaphyseal metaphyseal junction distal femur, overall measurements 2.8 x 5.7 cm. No endosteal scalloping or periostitis or destructive process. XR/XR knee RT 2V IMPRESSION: Right: -Tricompartment osteoarthritis with joint narrowing medial compartment and mild patellofemoral joint narrowing. Small suprapatellar effusion. -Spurring at extensor mechanism at insertion quadriceps tendon and insertion patella and tibia. Left: -Osteoarthritis medial knee joint compartment. -Benign-appearing heavily sclerotic lesion distal femur, overall measurements 2.8 x 5.7 cm. Recommend correlation with patient's symptoms. This could be further assessed with formal radiographs targeted to the distal left femur.
== END 2022-09-08 07:56 | disposition home or self-care (01) ==
LOC: HO.HOSX 07:55
PROVIDERS: Visit Provider Physician Assistant
DX: M17.11 Unilateral primary osteoarthritis, right knee (principal)
CPT/HCPCS: 73560; 73565; 99202

== ENCOUNTER 2022-09-14 10:55 | Day surgery (SDC) | payer MEDICARE, SELFPAY ==
[2022-09-08 09:53] VITALS: BMI 43.5
--- NOTE | 2022-09-10 12:56 | HO.ANESPROP2 ---
Documented by User: Alyssa Strickland NP 09/10/22 13:03 HPI - Anesthesia Eval Consult details Narrative: 67yo F for Colonoscopy Cardiac cleared for bariatric surgery at 06/2022 appt s/p lap band removal 01/2022 with GA-ETT 7 PMFSH Active Problems Active Problems: All Active Problems (Updated 09/08/22 @ 09:02 by Myriam Bowens PA-C) Osteoarthritis of right knee (Acute) Patellofemoral arthritis of right knee (Acute) Essential hypertension (Acute) HTN (hypertension), benign (Acute) Generalized anxiety disorder (Acute) Abnormal ECG (Acute) Pre-op evaluation (Acute) History of removal of laparoscopic gastric banding device (Acute) History of colonic polyps (Acute) Encounter for screening colonoscopy (Acute) Hypokalemia (Acute) Gastric band malfunction (Acute) GERD (gastroesophageal reflux disease) (Acute) H/O laparoscopic adjustable gastric banding (Acute) Anxious depression (Acute) Obesity (Acute) Past Medical History Medical History Generalized anxiety disorder GERD (gastroesophageal reflux disease) HTN (hypertension), benign Hypokalemia Obesity Family History Family History Mother Hypertension Glaucoma Brother History of heart artery stent Brother History of heart artery stent Brother History of heart artery stent Family history of problems with anesthesia: No Surgical History Surgical History H/O laparoscopic adjustable gastric banding History of cholecystectomy History of Problems with Anesthesia: No Social History Social History Alcohol intake: former Patient Tobacco Use Status: Never used Tobacco Use of substances other than those prescribed or required for medical reasons: No Are you DNR?: No Advance Directives: No Advance Directives Information Provided: Yes Meds Allergies Allergy/AdvReac Type Severity Reaction Status Date / Time No Known Allergies Allergy Verified 09/08/22 08:54 Home Medications Medication Instructions Recorded Confirmed Last Taken Type bupropion HCl 300 mg 24 hr tablet, 300 mg PO QAM 12/30/21 09/14/22 Unknown History extended release (Wellbutrin XL) ferrous sulfate 325 mg (65 mg 325 mg PO DAILY 04/09/14/22 08/15/22 History iron) tablet (Feosol) losartan 100 1 tab PO DAILY 01/14/22 09/14/22 01/25/22 History mg-hydrochlorothiazide 25 mg tablet Exam Exam Date and Time: September 10, 2022 1256 Height,Weight and Vital Signs: Height 5 ft 3 in Weight 111.584 kg Pertinent Lab Results Pertinent Lab Results: Laboratory Tests 06/02/22 06/02/22 08:58 08:58 WBC 6.5 Hgb 13.4 Hct 42.5 Plt Count 374 Sodium 138 Potassium 3.6 Chloride 100 Carbon Dioxide 25 BUN 25 H D Creatinine 0.99 Narrative Narrative: EKG 05/2022 Vent. Rate : 077 BPM ? ? Atrial Rate : 077 BPM ?? P-R Int : 212 ms? QRS Dur : 092 ms ? ? QT Int : 392 ms ? ? ? P-R-T Axes : 023 -06 066 degrees ?? QTc Int : 443 ms ? Sinus rhythm with 1st degree A-V block Inferior infarct ,age undetermined Abnormal ECG No previous ECGs available Exercise Stress 06/2022 Protocol: VERNON ? Max HR: 164 BPM? 107% of? Pred: 152 BPM Max BP: 154/084 mmHG Max Work Load: 5.8 METS ? Exercise stress test with exercise 5 min 1 sec of Vernon protocol ( speed reduced ?to 2 MPH for last minute), achieving > 100% MPHR, with moderate sob and ?fatigue, no chest discomfort, without arrythmia, with normotensive and brisk ?chronotropic response to exercise, without EKG changes meeting criteria for ?ischemia. Test reviewed with Dr Torres. ECHO 06/2022 Conclusions: - 1. Technically limited study despite use of contrast agent ? ? 2. LV systolic function appears to be normal with LVEF of 55-60% with impaired relaxation filling pattern ? 3. Poor visualization of cardiac valves with cardiac valvular? ? Doppler within normal limits ? Assessment and Plan Assessment Anesthesia Assessment: Chart Reviewed Final Anesthetic Review Family History of Problems with Anesthesia: No History of Problems with Anesthesia: No Documented by User: Last Esqueda MD 09/14/22 12:30 PMFSH Past Medical History Medical History Generalized anxiety disorder GERD (gastroesophageal reflux disease) HTN (hypertension), benign Hypokalemia Obesity Family History Family History Mother Hypertension Glaucoma Brother History of heart artery stent Brother History of heart artery stent Brother History of heart artery stent Surgical History Surgical History H/O laparoscopic adjustable gastric banding History of cholecystectomy Social History Social History Alcohol intake: former Patient Tobacco Use Status: Never used Tobacco Use of substances other than those prescribed or required for medical reasons: No Are you DNR?: No Advance Directives: No Advance Directives Information Provided: Yes Meds Allergies Allergy/AdvReac Type Severity Reaction Status Date / Time No Known Allergies Allergy Verified 09/08/22 08:54 Home Medications Medication Instructions Recorded Confirmed Last Taken Type bupropion HCl 300 mg 24 hr tablet, 300 mg PO QAM 12/30/21 09/14/22 Unknown History extended release (Wellbutrin XL) ferrous sulfate 325 mg (65 mg 325 mg PO DAILY 12/30/21 09/14/22 08/15/22 History iron) tablet (Feosol) losartan 100 1 tab PO DAILY 01/14/22 09/14/22 01/25/22 History mg-hydrochlorothiazide 25 mg tablet Exam Airway Mallampati Class: II TM Dist: >3cm Neck ROM: Full Loose/Missing/Broken Teeth: No Assessment and Plan Assessment Anesthesia Assessment: Anesthesia Plan Discussed Final Anesthetic Review NPO: Yes ASA Class: II Final Preanesthetic Review: No Changes in Pt Med Stat, Meds/Allgs Chart Reviewed, Consent Obtained/Reviewed and Anes Risks/Benef Reviewed Patient Risk: Intermediate Procedure Risk: Low Anesthetic Plan Anesthetic Plan: MAC: Disposition: Standard PACU
[2022-09-14 11:09] VITALS: BP 140/102; PULSE 81; RESP 16; TEMP 36.8; O2SAT 98
[2022-09-14] MEDS: Lactated Ringers 1,000 ML 100 ML IVCONT (11:32)
--- NOTE | 2022-09-14 11:42 | MHC.SHP ---
Pre-Procedural Eval Section A Date of Service: 09/14/22 Section B Chief Complaint: Personal history of colonic polyps,screening Details of Present Illness: A 67 y/o female here for colonoscopy for personal hx of polyps. Last colo 2016: TA. Relevant Social History: None Present Medications: see Short Stay Collaborative assessment History of Previous Operations: Relevant previous surgery/procedure and date(s) (Hx of lap band, removed 01/2022; cholecystectomy ) Allergies: Allergies Allergy/AdvReac Type Severity Reaction Status Date / Time No Known Allergies Allergy Verified 09/08/22 08:54 Review of Systems Review of Systems Comment: 10 point ROS negative except as above Exam Exam Comment: Gen appear: No acute distress, well nourished HEENT: no icterus Chest: No overt resp distress Abd: soft, nontender, nondistended Psych: Stable affect, answering questions appropriately Neuro: A/Ox3 noted to move all extremities spontaneously Ext: no peripheral edema Plan Diagnosis/Plan: Unchanged I have reviewed the history and physical and performed a pertinent physical examination on my patient. No changes have occurred unless specified. Time Spent With Patient Time: Total time managing care of this patient today ____ minutes.
--- NOTE | 2022-09-14 11:46 | P.OP_ITS ---
Operative Note Operative Note Date of Service: 09/14/22 Narrative: Procedure: Colonoscopy Indication: Personal history of polyps Endoscopist: Carli Moseley MD Anesthesia Provider: Dr Last Esqueda Anesthesia type: MAC Instrument: Olympus [id number]-[id number] Consent: Indication, risks vs benefits, and alternatives were discussed with the patient who gave written informed consent to proceed. EKG, pulse, pulse oximetry and blood pressure were monitored throughout the procedure. Please see anesthesia flowsheet. Procedure: The patient was brought to the procedure room and placed in the left lateral decubitus position. IV medications were administered by the anesthesia provider in attendance. A digital rectal exam was performed which was normal. The colonoscope was then inserted through the anus and advanced through the colon to the cecum at 85 cm,and terminal ileum. Mucosa was carefully examined under high definition white light as the instrument was slowly withdrawn in a retrograde panoramic fashion. Retroflexion was performed in ascending colon and rectum. The procedure was not difficult. There were no immediate obvious complications. The quality of the prep was BBPS: 3+2+3 = adequate Withdrawal time 12 minutes. Limitations: No limitations. Findings: Mucosa: Normal to cecum and terminal ileum. Protruding lesions: * Medium internal hemorrhoids without stigmata of recent bleeding. Impression: 1. Normal colon and terminal mucosa 2. Internal hemorrhoids Recommendations: - Repeat colonoscopy in 7-10 years for CRC screening
[2022-09-14 12:25] VITALS: BP 119/70; PULSE 78; RESP 16; TEMP 36.6; O2SAT 98
== END 2022-09-14 13:25 | disposition home or self-care (01) ==
PROVIDERS: PCP Internal Medicine; Visit Provider Internal Medicine
PROC: 0DJD8ZZ Inspection of Lower Intestinal Tract, Via Natural or Artificial Opening Endoscopic (ICD-10-PCS; CPT 45378; principal; 2022-09-14 12:10)
DX: Z12.11 Encounter for screening for malignant neoplasm of colon (principal); Z86.010 Personal history of colon polyps; K64.8 Other hemorrhoids; K21.9 Gastro-esophageal reflux disease without esophagitis; I10 Essential (primary) hypertension; E87.6 Hypokalemia; E66.9 Obesity, unspecified; Z68.41 Body mass index [BMI] 40.0-44.9, adult; F41.1 Generalized anxiety disorder; R94.31 Abnormal electrocardiogram [ECG] [EKG]; Z79.899 Other long term (current) drug therapy; Z90.49 Acquired absence of other specified parts of digestive tract
CPT/HCPCS: G0105

== ENCOUNTER 2023-06-20 13:32 | Outpatient (AMB) | payer MEDICARE, SELFPAY ==
[2023-06-20 14:02] VITALS: BP 120/72; PULSE 86; BMI 45.8
--- NOTE | 2023-06-20 14:02 | A.OFFVIS_ITS ---
Intake Vital Signs 06/20/23 14:02 Height 5 ft 3 in Weight 258 lb 13.163 oz BMI 45.8 BP 120/72 Blood Pressure Location Lt brachial Position Sitting Pulse 86 Intake Visit Reasons: 1 yr fu Intake Note: 1 year f/u pt having s/b during physical activities Gliding Pilot Instructor Required: No Allergies No Known Allergies Allergy (Verified 06/20/23 14:08) Medication List - Last Reconciled 06/20/23 by Oleg Torres MD amlodipine 2.5 mg PO DAILY bupropion HCl (Wellbutrin XL) 300 mg PO QAM cholecalciferol (vitamin D3) 50 mcg PO DAILY cyanocobalamin (vitamin B-12) 250 mcg (1/2 x 500 mcg) PO DAILY escitalopram oxalate (Lexapro) 10 mg PO DAILY ferrous sulfate (Feosol) 325 mg PO DAILY losartan-hydrochlorothiazide 100-25 mg 1 tab PO DAILY potassium chloride (Klor-Con) 20 mEq PO BID HPI HPI Comments History of Present Illness Details 68-year-old female here for follow-up. She was being considered for bariatric surgery and on EKG. EKG showed inferior Q-waves in concern for inferior wall infarct. She underwent stress testing which did not show any significant ischemic changes and also underwent echocardiography which showed EF of 55 60%. The imaging was somewhat limited but overall ejection fraction was completely normal. She has no chest discomfort shortness of breath. Does not recall having any symptoms previously 2. Blood pressure control is good on the current regimen. 06/20/2023: She returns for follow-up. It appears her insurance did not cover for bariatric surgery and she has not undergone surgery. She said she had some depression and gained approximately 20 more lb. She has not been physically active. Recently she started walking more and has noticed that her heart starts pounding when she starts walking. This is not consistently present every time she tries to exercise. She also gets out of breath. No chest discomfort. [facility] Medical History (Updated 06/20/23 @ 14:24 by Oleg Torres MD) Generalized anxiety disorder Hypokalemia GERD (gastroesophageal reflux disease) HTN (hypertension), benign Obesity Surgical History History of cholecystectomy H/O laparoscopic adjustable gastric banding Family History Mother Hypertension Glaucoma Brother History of heart artery stent Brother History of heart artery stent Brother History of heart artery stent Social History Alcohol intake: former Patient Tobacco Use Status: Never used Tobacco Review of Systems ENT Reports dizziness Card Denies chest pain, Denies chest pain at rest, Denies chest pain with activity, Denies rapid heart rate, Denies pedal edema, Denies edema, Denies leg edema, Denies lightheadedness, Denies palpitations, Denies dyspnea, Denies dyspnea on exertion and Denies orthopnea Resp Denies cough, Denies dyspnea and Denies dyspnea on exertion GI Denies hematochezia and Denies change in stool character Musc Denies abnormal gait, Reports limited range of motion, Reports muscle cramps, Denies muscle weakness, Denies numbness, Denies radiating pain into limb, Denies stiffness and Denies tingling Neuro Denies abnormal gait, Reports dizziness, Denies numbness and Denies tingling Endo Denies palpitations Physical Exam Vital Signs: Last Vital Signs Pulse 86 06/20/23 14:02 BP 120/72 06/20/23 14:02 BMI result Body Mass Index 45.8 GENERAL APPEARANCE: in no acute distress, pleasant. NECK: no carotid bruit, no jugular venous distention. SKIN: no suspicious lesions, warm and dry. HEART: no murmurs, regular rate and rhythm. LUNGS: clear to auscultation bilaterally. ABDOMEN: soft, nontender. EXTREMITIES: no edema. PERIPHERAL PULSES: equal. NEUROLOGIC: No gross deficits, AAO X 3 Office Procedures EKG Details: Sinus rhythm 86 beats per minute, low voltage QRS axis, poor R-wave progression, cannot rule out inferior infarct, cannot rule out anterior infarct, QTC 428 milliseconds. [id number], Complete Assessment & Plan Assessment & Plan (1) Essential hypertension: Code(s): I10 - Essential (primary) hypertension (2) Abnormal ECG: Code(s): R94.31 - Abnormal electrocardiogram [ECG] [EKG] (3) Palpitations: Code(s): R00.2 - Palpitations Plan Pleasant 68 female who is here for follow-up. Blood pressure control is good. She is getting some pounding sensation in the chest with palpitations when she tries exercise. She has been sedentary and has gained 20 more lb. I think most of symptoms are related to deconditioning and I have advised her to continue exercise. There are other possibilities like arrhythmia and but have symptoms are mostly exertional and she feels that her heart is racing. I think this is related to deconditioning and will improve with exercise. If she had any palpitations at rest then I will consider doing Holter monitoring. I have discussed this with her in detail and currently she wishes to exercise and see if the symptoms will improve. Previously had normal stress test. Thank you for allowing me to participate in the care of your patient. Please feel free to contact me if you have any questions. Coding Level of Care Code Est Pt Level 4 (69573) Diagnoses Essential hypertension I10 Abnormal ECG R94.31 Palpitations R00.2 CPT Codes EKG - CPT: 40837-[id number], Complete ([id number])
== END 2023-06-20 14:25 | disposition home or self-care (01) ==
PROVIDERS: PCP Internal Medicine; Visit Provider Internal Medicine Cardiovascular Disease
DX: I10 Essential (primary) hypertension (principal); R94.31 Abnormal electrocardiogram [ECG] [EKG]; R00.2 Palpitations
CPT/HCPCS: 93010; 99214

== ENCOUNTER → 2023-06-20 13:32 | Outpatient (BNVA) | payer MEDICARE, SELFPAY | PROVIDERS: PCP Internal Medicine; Visit Provider Internal Medicine Cardiovascular Disease | DX: I10 Essential (primary) hypertension (principal); R94.31 Abnormal electrocardiogram [ECG] [EKG]; R00.2 Palpitations; E66.9 Obesity, unspecified; Z68.42 Body mass index [BMI] 45.0-49.9, adult | CPT/HCPCS: 93005; 99212 ==

== ENCOUNTER 2023-12-21 10:46 | Outpatient (REF) | payer MEDICARE, SELFPAY ==
--- NOTE | ~2023-12-21 | XR_ITS ---
EXAMINATION: XR KNEE, LEFT CLINICAL INFORMATION: Pain. COMPARISON: Radiographs dated 09/08/2022. TECHNIQUE: AP upright, lateral and axial views of the left knee are submitted. The AP upright view includes both knees. FINDINGS: Bony alignment and mineralization are normal. The lateral and medial joint space compartments of the right knee are well-maintained, with peripheral osteophyte formation of each. The lateral and medial joint space compartment of the left knee are well-maintained, with peripheral osteophyte formation. There is a small calcification towards the distal margin of the left medial femoral condyle, which likely represents a small Tani-Stieda calcification. Within the distal left femoral metadiaphysis, a 2.6 x 5.7 x 2.3 cm sclerotic lesion is seen. This is medullary, with chondroid calcifications and a narrow transition zone. No gross bone destruction is seen, and there is no periosteal reaction or soft tissue mass. This appearance is unchanged from 09/08/2022. XR/XR knee LT 3V IMPRESSION: 1. There is a continued stable sclerotic lesion within the distal left femoral metadiaphysis. The imaging features favor a benign enchondroma. A bone infarction is a further differential consideration. Low-grade chondrosarcoma and a metastasis are considered unlikely given these features in the interim stability. If of continued clinical concern (i.E., history of pain in this location or known malignancy), this could be further evaluated with MRI. 2. There is mild osteoarthritic change of the bilateral knees. 3. A Tani-Stieda calcification is seen adjacent to the left medial femoral condyle, suggesting an old, healed MCL injury.
== END 2023-12-21 10:47 | disposition home or self-care (01) ==
LOC: HO.HOSX 10:46
PROVIDERS: Visit Provider Physician Assistant
DX: M17.12 Unilateral primary osteoarthritis, left knee (principal)
CPT/HCPCS: 20610; 73562; J1010; J1040

== ENCOUNTER 2023-12-21 12:55 | Outpatient (AMB) | payer OTHER, SELFPAY ==
--- NOTE | 2023-12-21 13:00 | A.OFFVIS_ITS ---
Intake Vital Signs 12/21/23 13:19 Height 5 ft 3 in Weight 258 lb BMI 45.7 Intake Visit Reasons: Newprob-left knee pain Intake Note: Elvira muñoz 68 year old female presents today for an evaluation of left knee pain. Patient reports that she was walking for about 30 minutes, when she put her foot on ground she felt a sharp pain for about 2 days. States her pain has improved and is more manageable. Her pain is located at the anterior aspect of knee. Her knees frequently gives out. Finds Tylenol provides temporary relief. She avoids NSAID's due to a reaction and was told to avoid taking. She is requesting a cortisone injection. Allergies No Known Allergies Allergy (Verified 12/21/23 13:19) Medication List - Last Reconciled 12/21/23 by Myriam Bowens PA-C amlodipine 2.5 mg PO DAILY bupropion HCl (Wellbutrin XL) 300 mg PO QAM cholecalciferol (vitamin D3) 50 mcg PO DAILY cyanocobalamin (vitamin B-12) 250 mcg (1/2 x 500 mcg) PO DAILY escitalopram oxalate (Lexapro) 10 mg PO DAILY ferrous sulfate (Feosol) 325 mg PO DAILY losartan-hydrochlorothiazide 100-25 mg 1 tab PO DAILY potassium chloride (Klor-Con) 20 mEq PO BID HPI Newprob-left knee pain HPI Details 68-year-old female who presents to the [facility] today for evaluation of left knee pain about 3 weeks ago after she walked for 30 minutes and stepped her foot on ground and felt a sharp pain in her knee for about 2 days. She currently states she has pain at the anterior aspect of her knee which has been currently improved and more manageable. Her pain is aggravated in the mornings where she is unable to bend her knee. She does c/o her knee giving out. She finds transient relief with Tylenol. She avoids NSAIDS due to a reaction and was told to avoid taking them. She is interested in having a cortisone injection. She does not have a history of diabetes. [facility] Medical History (Updated 12/21/23 @ 13:41 by Myriam Bowens PA-C) Generalized anxiety disorder Hypokalemia GERD (gastroesophageal reflux disease) HTN (hypertension), benign Obesity Surgical History History of cholecystectomy H/O laparoscopic adjustable gastric banding Family History Mother Hypertension Glaucoma Brother History of heart artery stent Brother History of heart artery stent Brother History of heart artery stent Social History (Updated 12/21/23 @ 13:12 by PETAR Chin) Alcohol intake: former Patient Tobacco Use Status: Never used Tobacco Current occupational status: unemployed Review of Systems Const All systems reviewed & are unremarkable except as noted in HPI and below Physical Exam Vital Signs: BMI result Body Mass Index 45.7 Extrem Other: Left knee: Skin intact, no erythema or joint effusion. Tenderness along the me dial and lateral joint line. Full ROM with crepitus. Negative Angela?s. No ligamentous laxity. NVI. Office Procedures Joint Injection/Drain Joint Injection/Drain Primary Site: left knee Prep: site was prepped using aseptic technique, ethochloride spray was applied and injection warnings given Injected: 80 mg of, DepoMedrol, with 8 mL of, 1% plain lidocaine and in the joint Approach Used: anterolateral Procedure: The patient tolerated the procedure well and there was some relief with the local anesthesia Coding 61172 - Glenohumeral/Tronchanteric Bursa/Intraarticular Procedure code (CPT) selection complete Results Reviewed Results Reviewed: Xrays were obtained in the office today and personally reviewed by me of the left knee show severe PF oa with medial and lateral oa Assessment & Plan Assessment & Plan (1) Osteoarthritis of left knee: Code(s): M17.12 - Unilateral primary osteoarthritis, left knee Qualifiers: Osteoarthritis type: primary Qualified Code(s): M17.12 - Unilateral primary osteoarthritis, left knee Plan We discussed options today which include steroid injection. They did consent to move forward with the left knee injection, which was tolerated well. I recommended rest, ice and elevation and OTC anti-inflammatories PRN for discomfort. If symptoms persist or worsens over the next 6-8 weeks, patient will contact the office, otherwise follow-up as needed. Orders: Orders XR knee standing BI Today M25.561 - Pain in right knee, M25.562 - Pain in left knee Patient Instructions: Scribed for Myriam Bowens PA-C, by Gordon Escalona medical communication specialist, on 12/21/2023 at 1:00 PM Myriam LLOYD PA-C, have personally reviewed and agree with the information entered by the scribe. Coding Level of Care Code Est Pt Level 3 (09014) Diagnoses Primary osteoarthritis of left knee M17.12 Osteoarthritis type: primary CPT Codes Coding - Joint 7: 05268 - Glenohumeral/Tronchanteric Bursa/Intraarticular ([id number])
[2023-12-21 13:19] VITALS: BMI 45.7
== END 2023-12-21 13:42 | disposition home or self-care (01) ==
PROVIDERS: PCP Internal Medicine; Visit Provider Physician Assistant
DX: M17.12 Unilateral primary osteoarthritis, left knee (principal)
CPT/HCPCS: 20610; 99213

== ENCOUNTER 2024-01-19 09:47 | Outpatient (AMB) | payer MEDICARE, SELFPAY ==
--- NOTE | 2024-01-19 09:49 | A.OFFVIS_ITS ---
Vital Signs 01/19/24 09:50 Height 5 ft 3 in Weight 263 lb 3.711 oz BMI 46.6 BP 112/68 Blood Pressure Location Rt radial Position Sitting Pulse 82 Pulse Source Pulse Oximeter Intake Visit Reasons: r/s 12/22/23 6 mos followup (km) Cashier Required: No Allergies No Known Allergies Allergy (Verified 01/19/24 09:51) Medication List - Last Reconciled 01/19/24 by ESMER Castillo amlodipine 2.5 mg PO DAILY bupropion HCl XL (Wellbutrin XL) 300 mg PO QAM cholecalciferol (vitamin D3) 50 mcg PO DAILY cyanocobalamin (vitamin B-12) 250 mcg (1/2 x 500 mcg) PO DAILY escitalopram oxalate (Lexapro) 10 mg PO DAILY ferrous sulfate (Feosol) 325 mg PO DAILY losartan-hydrochlorothiazide 100-25 mg 1 tab PO DAILY potassium chloride (Klor-Con) 20 mEq PO BID HPI HPI r/s 12/22/23 6 mos followup (km): Details: Elvira is a 68-year-old female with past medical history of obesity, hypertension, gastric banding who was previously being evaluated for further bariatric surgery however insurance declined payment. As part of preop evaluation her EKG showed possible inferior infarct leading to prior cardiac evaluation. On last visit she reported heart palpitations and she now presents for follow-up. Today she reports that she has not really felt palpitations. She describes it as a quick sharp pain in her left upper chest which occurs randomly without pattern. This symptom has not worsened over the last few months. She denies other types of chest discomfort at rest or with activity. She is not feeling rapid heartbeats or skips in her heart rhythm. She has some shortness of breath with activity which is not new. No PND, orthopnea or edema. No lightheadedness, presyncope, syncope, falls. She does have issue with knee arthritis. She has received steroid injections which have been helpful for pain relief. She is now interested in pursuing the gastric balloon procedure. [facility] Medical History (Updated 01/19/24 @ 10:22 by ARNIE CastilloC) HTN (hypertension), benign Generalized anxiety disorder Hypokalemia GERD (gastroesophageal reflux disease) Obesity Surgical History History of cholecystectomy H/O laparoscopic adjustable gastric banding Family History Mother Hypertension Glaucoma Brother History of heart artery stent Brother History of heart artery stent Brother History of heart artery stent Social History Alcohol intake: former Patient Tobacco Use Status: Never used Tobacco Current occupational status: unemployed Review of Systems Const All systems reviewed & are unremarkable except as noted in HPI and below ENT Denies dizziness Card Details: quick sharp pains left upper chest Denies chest pain, Denies chest pain at rest, Denies chest pain with activity, Denies rapid heart rate, Denies pedal edema, Denies edema, Denies leg edema, Denies lightheadedness, Denies palpitations, Denies dyspnea, Denies dyspnea on exertion and Denies orthopnea Resp Denies cough, Denies dyspnea and Denies dyspnea on exertion GI Denies hematochezia and Denies change in stool character Musc Denies abnormal gait, Denies limited range of motion, Denies muscle cramps, Denies muscle weakness, Denies numbness, Denies radiating pain into limb, Denies stiffness and Denies tingling Neuro Denies abnormal gait, Denies dizziness, Denies numbness and Denies tingling Endo Denies palpitations Physical Exam Vital Signs: Last Vital Signs Pulse 82 01/19/24 09:50 BP 112/68 01/19/24 09:50 BMI result Body Mass Index 46.6 Const General: cooperative, healthy appearing, comfortable and no acute distress Orientation/consciousness: patient oriented x3 Neck Neck: Yes normal visual inspection and Yes no JVD Resp Effort & Inspection: normal respiratory effort Auscultation: clear to auscultation bilaterally, no crackles, no rales, no rhonchi and no wheezes Cardio Jugular venous distension: no JVD Rate: regular rate Rhythm: regular rhythm Heart sounds: S1 normal heart sound present, S2 normal heart sound present, no gallops, no murmurs and no rubs Peripheral pulses: Peripheral pulses 2+ throughout Neuro General: patient oriented x3 Extrem General: Yes normal to inspection and No no pedal edema Psych Appearance: grossly normal Mental Status: mental status grossly normal Speech and movement: Normal speech and movement present Assessment & Plan Assessment & Plan (1) Chest pain: Code(s): R07.9 - Chest pain, unspecified Category: Medical Plan: Reports of random sharp chest pains in the left upper chest, no pattern, brief. No exertional chest discomfort. She does have some shortness of breath with exertion. Prior EKG had showed sinus rhythm, can not exclude prior inferior infarct. An exercise stress test was done on 07/06/2022 showing exercise 5 minutes, moderate shortness of breath, no EKG changes of ischemia. An echocardiogram was done 07/13/2022 showing EF 55-60%, impaired relaxation. Unable to assess for wall motion abnormality due to poor cardiac definition. No known history of CAD. She does have cardiac risks of hypertension and obesity. At this time her symptom does not sound anginal in nature. Reviewed signs and symptoms of angina with her in detail. She would benefit from weight loss and increasing her physical activity as tolerated. She is limited by knee arthritis. Continue with risk factor modification. Blood pressure currently well controlled at 112/68. No med changes made today. Cardiology follow-up 1 year, sooner if needed. (2) Abnormal ECG: Code(s): R94.31 - Abnormal electrocardiogram [ECG] [EKG] Category: Medical Plan: As above (3) HTN (hypertension), benign: Code(s): I10 - Essential (primary) hypertension Category: Medical Plan: As above Plan Time spent on chart review, documentation, interview and assessment Coding Level of Care Code Est Pt Level 3 (42864) Diagnoses Chest pain R07.9 Abnormal ECG R94.31 HTN (hypertension), benign I10 Time Spent (min) 24
[2024-01-19 09:50] VITALS: BP 112/68; PULSE 82; BMI 46.6
== END 2024-01-19 10:14 | disposition home or self-care (01) ==
PROVIDERS: PCP Internal Medicine; Visit Provider Nurse Practitioner Family
DX: R07.9 Chest pain, unspecified (principal); R94.31 Abnormal electrocardiogram [ECG] [EKG]; I10 Essential (primary) hypertension
CPT/HCPCS: 99213

== ENCOUNTER → 2024-01-19 09:47 | Outpatient (BNVA) | payer MEDICARE, SELFPAY | PROVIDERS: PCP Internal Medicine; Visit Provider Nurse Practitioner Family | DX: R07.9 Chest pain, unspecified (principal); I10 Essential (primary) hypertension; R94.31 Abnormal electrocardiogram [ECG] [EKG] | CPT/HCPCS: 99212 ==

== ENCOUNTER 2024-01-24 13:00 | Outpatient (AMB) | payer OTHER, SELFPAY ==
--- NOTE | 2024-01-24 13:02 | A.OFFVIS_ITS ---
Vital Signs 01/24/24 13:05 Height 5 ft 4 in Weight 260 lb BMI 44.6 Handedness Right Intake Visit Reasons: new prob- Lt hand pain Intake Note: Elvira is a 68 year old female who is right hand dominant presents today for a new problem visit for her left hand evaluation. She was referred by her PCP Dr Susannah Santoyo. Patient states she noticed a lump on the volar aspect of her left hand a year ago but states it grew larger starting about 3 months ago. She denies the bump interfering with ADLs and denies pain, numbness, and tingling. No xrays done on left hand. Allergies No Known Allergies Allergy (Verified 01/24/24 13:10) HPI HPI new prob- Lt hand pain: Details: Elvira is a 68 year old right hand dominant woman who presents with complaints of a left hand mass. She complains of a mass on the palm of her left hand, at the base of the ring finger. She says this has been present for ~1 year now, but began to increase in size over the last 3 months. She denies any pain and says this does not limit her ADLs. She denies any numbness or tingling. [facility] Medical History (Updated 01/24/24 @ 13:34 by Chuy Holbrook) HTN (hypertension), benign Generalized anxiety disorder Hypokalemia GERD (gastroesophageal reflux disease) Obesity Surgical History History of cholecystectomy H/O laparoscopic adjustable gastric banding Family History Mother Hypertension Glaucoma Brother History of heart artery stent Brother History of heart artery stent Brother History of heart artery stent Social History (Updated 01/24/24 @ 13:12 by Bronwyn Mcguire) Alcohol intake: former Patient Tobacco Use Status: Never used Tobacco Current occupational status: retired Current occupation: rt hand dominant Review of Systems Const All systems reviewed & are unremarkable except as noted in HPI and below Physical Exam Vital Signs: BMI result Body Mass Index 44.6 Const General: cooperative, healthy appearing and no acute distress Orientation/consciousness: patient oriented x3 HEENT Head: Yes normocephalic and Yes atraumatic Eyes EOM: EOMs intact bilaterally Resp Effort & Inspection: normal respiratory effort and able to speak in complete sentences Cardio Jugular venous distension: no JVD Skin General skin exam: turgor normal Rashes: no rashes Neuro General: patient oriented x3 Extrem Other: Evaluation of Left Upper Extremity: The patient is alert, oriented, and in no acute distress Neuro: Median, Ulnar, Radial nerves motor and sensory intact and sensation is normal to the tips of all digits Vascular: Cap refill brisk ROM: She can make a fist and extend all her digits She can place her hand flat on the table Skin: No lacerations or abrasions. General: No Ecchymosis. No Erythema or evidence of infection. There is a Dupuytrens cord extending from the volar aspect of the left small finger in the A1 grady area extending radially across the 4th webspace up the ulnar aspect of the ring finger to just past the PIP joint. This appears to be causing an approximately 20 degree PIP flexion contracture. Ring finger: MCP 0/PIP 20 There is a very faint central cord extending from the palm to the small finger. No small finger contracture Psych Appearance: grossly normal Affect: normal affect Attitude: cooperative Assessment & Plan Assessment & Plan (1) Dupuytren's contracture of left hand: Code(s): M72.0 - Palmar fascial fibromatosis [Dupuytren] Category: Medical (2) Dupuytren's disease of palm of left hand: Code(s): M72.0 - Palmar fascial fibromatosis [Dupuytren] Category: Medical Plan Assessment & Plan: 1. Left ring finger Dupuytrens contracture MCP 0/PIP 20 There is a cord extending from the small finger to the ulnar aspect of the ring finger PIP joint I educated her about this condition I discussed operative treatment options I recommend surgery, and she is in agreement The risks and benefits of operative treatment were discussed with the patient and the patient wishes to proceed with surgery. These risks include, but are not limited to risk of damage to blood vessels, nerves, tendons, infection, recurrence, incomplete relief of preoperative symptoms, persistent pain, possible need for further surgery and the risks associated with regional blocks and anesthesia. The plan is to take the patient to the operating room sometime in the next few weeks for the following procedures: 1. Left ring finger partial fasciectomy, under general All of the preoperative paperwork including the consent was reviewed today. All the patient's questions were answered. The patient understands that they will be contacted by our operations scheduler soon to schedule this procedure She denies Diabetes, blood thinners, asthma, heart, lung, kidney issues 2. Left small finger Dupuytrens cord No contracture We will manage this conservatively at this time Scribed for Myrtle Gonzales MD by Chuy Holbrook, medical office receptionist assistant, on 01/24/24 at 1:30 PM, EST. Coding Level of Care Code New Pt Level 4 (53457) Diagnoses Dupuytren's contracture of left hand M72.0 Dupuytren's disease of palm of left hand M72.0
[2024-01-24 13:05] VITALS: BMI 44.6
== END 2024-01-24 13:46 | disposition home or self-care (01) ==
PROVIDERS: PCP Internal Medicine; Visit Provider Orthopaedic Surgery
DX: M72.0 Palmar fascial fibromatosis [Dupuytren] (principal)
CPT/HCPCS: 99204; 99214

== ENCOUNTER → 2024-01-24 13:00 | Outpatient (BNVA) | payer OTHER, SELFPAY | PROVIDERS: PCP Internal Medicine; Visit Provider Orthopaedic Surgery ==

== ENCOUNTER 2024-02-29 13:12 | Outpatient (AMB) | payer OTHER, SELFPAY ==
--- NOTE | 2024-02-29 13:28 | MHC.OFFVIS ---
Intake Visit Reasons: Preop LT RF partial dup fasc 03/08/24 AR Intake Note: Elvira is a 69 yo right hand dominant female who presents today for post op on left RF partial dup fasc 03/08/[address] Gonzales. Allergies No Known Allergies Allergy (Verified 02/29/24 13:31) HPI HPI Preop LT RF partial dup fasc 03/08/24 AR: Details: Elvira is a 68 year old right hand dominant woman who returns to discuss treatment for her left ring finger Dupuytrens contracture. She denies any changes in her symptoms or medical history. She denies any numbness or tingling. [facility] Medical History (Updated 01/24/24 @ 13:34 by Chuy Holbrook) HTN (hypertension), benign Generalized anxiety disorder Hypokalemia GERD (gastroesophageal reflux disease) Obesity Surgical History History of cholecystectomy H/O laparoscopic adjustable gastric banding Family History Mother Hypertension Glaucoma Brother History of heart artery stent Brother History of heart artery stent Brother History of heart artery stent Social History Alcohol intake: former Patient Tobacco Use Status: Never used Tobacco Current occupational status: retired Current occupation: rt hand dominant Physical Exam Extrem Other: Evaluation of Left Upper Extremity: The patient is alert, oriented, and in no acute distress Neuro: Median, Ulnar, Radial nerves motor and sensory intact and sensation is normal to the tips of all digits Vascular: Cap refill brisk ROM: She can make a fist and extend all her digits She can place her hand flat on the table There is a Dupuytrens cord extending from the volar aspect of the left small finger in the A1 grady area extending radially across the 4th webspace up the ulnar aspect of the ring finger to just past the PIP joint. This appears to be causing an approximately 20 degree PIP flexion contracture. Ring finger: MCP 0/PIP 20 There is a very faint central cord extending from the palm to the small finger. No small finger contracture Assessment & Plan Assessment & Plan (1) Dupuytren's contracture of left hand: Code(s): M72.0 - Palmar fascial fibromatosis [Dupuytren] Category: Medical (2) Dupuytren's disease of palm of left hand: Code(s): M72.0 - Palmar fascial fibromatosis [Dupuytren] Category: Medical Plan Assessment & Plan: 1. Left ring finger Dupuytrens contracture MCP 0/PIP 20 There is a cord extending from the small finger to the ulnar aspect of the ring finger PIP joint I educated her about this condition I discussed operative treatment options I recommend surgery, and she is in agreement The risks and benefits of operative treatment were discussed with the patient and the patient wishes to proceed with surgery. These risks include, but are not limited to risk of damage to blood vessels, nerves, tendons, infection, recurrence, incomplete relief of preoperative symptoms, persistent pain, possible need for further surgery and the risks associated with regional blocks and anesthesia. The plan is to take the patient to the operating room sometime on 03/08/24 for the following procedures: 1. Left ring finger partial fasciectomy, under general All of the preoperative paperwork including the consent was reviewed today. All the patient's questions were answered. She denies Diabetes, blood thinners, asthma, heart, lung, kidney issues 2. Left small finger Dupuytrens cord No contracture We will manage this conservatively at this time Scribed for Myrtle Gonzales MD by Chuy Holbrook, medical lab scientist, on 02/29/24 at 2:30 PM, EST. Coding Level of Care Code Est Pt Level 4 (73978) Diagnoses Dupuytren's contracture of left hand M72.0 Dupuytren's disease of palm of left hand M72.0
== END 2024-02-29 14:23 | disposition home or self-care (01) ==
PROVIDERS: PCP Internal Medicine; Visit Provider Orthopaedic Surgery
DX: M72.0 Palmar fascial fibromatosis [Dupuytren] (principal)
CPT/HCPCS: 99024

== ENCOUNTER → 2024-02-29 13:12 | Outpatient (BNVA) | payer OTHER, SELFPAY | PROVIDERS: PCP Internal Medicine; Visit Provider Orthopaedic Surgery ==

== ENCOUNTER 2024-03-06 08:40 | Outpatient (REF) | payer MEDICARE, SELFPAY | END 2024-03-06 08:41 | disposition home or self-care (01) | LOC: HO.MAMMO 08:40 | PROVIDERS: Visit Provider Internal Medicine | DX: Z12.31 Encounter for screening mammogram for malignant neoplasm of breast (principal) | CPT/HCPCS: 77063; 77067 ==

== ENCOUNTER → 2024-03-06 09:00 | Outpatient (BNV) | payer MEDICARE, SELFPAY | PROVIDERS: Visit Provider Radiology Diagnostic Radiology | DX: Z12.31 Encounter for screening mammogram for malignant neoplasm of breast (principal) | CPT/HCPCS: 77063; 77067 ==

== ENCOUNTER 2024-03-08 05:56 | Day surgery (SDC) | payer MEDICARE, SELFPAY ==
--- NOTE | 2024-03-07 09:28 | P.CONAN_ITS ---
Documented by User: Alyssa Strickland NP 03/07/24 09:30 HPI - Anesthesia Eval Consult details Narrative: 69yo F for Left Ring finger Partial Dupuytrens Contracture Release and Fasciectomy [place]s [facility] [place] for hx abnormal EKG. 2021 w/u negative. Stable at 01/2024 office visit. [facility] Active Problems Active Problems: All Active Problems Dupuytren's disease of palm of left hand (Acute) Dupuytren's contracture of left hand (Acute) HTN (hypertension), benign (Acute) Chest pain (Acute) Osteoarthritis of left knee (Acute) Palpitations (Acute) Osteoarthritis of right knee (Acute) Patellofemoral arthritis of right knee (Acute) Essential hypertension (Acute) Abnormal ECG (Acute) Pre-op evaluation (Acute) History of removal of laparoscopic gastric banding device (Acute) History of colonic polyps (Acute) Encounter for screening colonoscopy (Acute) Gastric band malfunction (Acute) Anxious depression (Acute) H/O laparoscopic adjustable gastric banding (Acute) Past Medical History Medical History Depression Generalized anxiety disorder Hypokalemia GERD (gastroesophageal reflux disease) HTN (hypertension), benign Obesity Family History Family History Mother Hypertension Glaucoma Brother History of heart artery stent Brother History of heart artery stent Brother History of heart artery stent Family history of problems with anesthesia: No Surgical History Surgical History H/O colonoscopy History of cholecystectomy H/O laparoscopic adjustable gastric banding History of Problems with Anesthesia: No Social History Social History Alcohol intake: former Patient Tobacco Use Status: Never used Tobacco Current occupational status: retired Current occupation: rt hand dominant Meds Allergies Allergy/AdvReac Type Severity Reaction Status Date / Time No Known Allergies Allergy Verified 03/08/24 06:06 Home Medications ?Medication ?Instructions ?Recorded ?Confirmed ?Last Taken ?Type bupropion HCl 300 mg 24 hr tablet, 300 mg PO QAM 12/30/21 03/08/24 03/08/24 04:30 History extended release (Wellbutrin XL) ferrous sulfate 325 mg (65 mg 325 mg PO DAILY 12/30/21 03/08/24 08/15/22 History iron) tablet (Feosol) losartan 100 1 tab PO DAILY 01/14/22 03/08/24 01/25/22 History mg-hydrochlorothiazide 25 mg tablet escitalopram oxalate 10 mg tablet 10 mg PO DAILY 06/20/23 03/08/24 Unknown History (Lexapro) amlodipine 10 mg tablet 10 mg PO DAILY 02/29/24 03/08/24 03/08/24 04:30 History multivitamin 1 tab PO DAILY 03/08/24 03/08/24 Unknown History turmeric 1,000 mg PO DAILY 03/08/24 03/08/24 03/06/24 History Exam Narrative Narrative: EKG 2022 Sinus rhythm 86 beats per minute, low voltage QRS axis, poor R-wave progression, cannot rule out inferior infarct, cannot rule out anterior infarct, QTC 428 milliseconds. Assessment and Plan Assessment Anesthesia Assessment: Chart Reviewed Final Anesthetic Review Family History of Problems with Anesthesia: No History of Problems with Anesthesia: No Documented by User: Angie Santos MD 03/08/24 08:17 [facility] Past Medical History Medical History Depression Generalized anxiety disorder Hypokalemia GERD (gastroesophageal reflux disease) HTN (hypertension), benign Obesity Family History Family History Mother Hypertension Glaucoma Brother History of heart artery stent Brother History of heart artery stent Brother History of heart artery stent Surgical History Surgical History H/O colonoscopy History of cholecystectomy H/O laparoscopic adjustable gastric banding History of Problems with Anesthesia: No Social History Social History Alcohol intake: former Patient Tobacco Use Status: Never used Tobacco Current occupational status: retired Current occupation: rt hand dominant Meds Allergies Allergy/AdvReac Type Severity Reaction Status Date / Time No Known Allergies Allergy Verified 03/08/24 06:06 Home Medications ?Medication ?Instructions ?Recorded ?Confirmed ?Last Taken ?Type bupropion HCl 300 mg 24 hr tablet, 300 mg PO QAM 12/30/21 03/08/24 03/08/24 04:30 History extended release (Wellbutrin XL) ferrous sulfate 325 mg (65 mg 325 mg PO DAILY 12/30/21 03/08/24 08/15/22 History iron) tablet (Feosol) losartan 100 1 tab PO DAILY 01/14/22 03/08/24 01/25/22 History mg-hydrochlorothiazide 25 mg tablet escitalopram oxalate 10 mg tablet 10 mg PO DAILY 06/20/23 03/08/24 Unknown History (Lexapro) amlodipine 10 mg tablet 10 mg PO DAILY 02/29/24 03/08/24 03/08/24 04:30 History multivitamin 1 tab PO DAILY 03/08/24 03/08/24 Unknown History turmeric 1,000 mg PO DAILY 03/08/24 03/08/24 03/06/24 History Exam Airway Mallampati Class: III TM Dist: >3cm Neck ROM: Full Loose/Missing/Broken Teeth: No Heart: RRR Lungs: CTA Assessment and Plan Assessment Anesthesia Assessment: Anesthesia Plan Discussed Final Anesthetic Review History of Problems with Anesthesia: No NPO: Yes ASA Class: III Final Preanesthetic Review: Meds/Allgs Chart Reviewed, Consent Obtained/Reviewed and Anes Risks/Benef Reviewed Patient Risk: Intermediate Procedure Risk: Low Anesthetic Plan Anesthetic Plan: GA and Regional Block Disposition: Standard PACU
[2024-03-08] VITALS (8 sets, daily range): BP systolic 118–154; BP diastolic 61–77; PULSE 80–84; RESP 14–18; TEMP 36.3–36.9; O2SAT 92–97; BMI 45.3
[2024-03-08] MEDS: Lactated Ringers 1,000 ML 100 ML IVCONT (06:26)
--- NOTE | 2024-03-08 07:34 | MHC.SHP ---
Pre-Procedural Eval Section A - 24 Hr Update-Section A only Date of Service: 03/08/24 The patient is an INPATIENT: No Changes since office visit: No Cold of Flu in the past 2 weeks, No New Medical Problems, No Changes in Medication and No Patient answered all questions The patient has been examined within 24 hours of the surgical procedure. The History & Physical has been completed within 30 days and I have reviewed it.: Yes Section B - Complete if H&P > 30 days Chief Complaint: Palmar fascial fibromatosis [Dupuytren] Allergies: Allergies Allergy/AdvReac Type Severity Reaction Status Date / Time No Known Allergies Allergy Verified 03/08/24 06:06 Plan I have reviewed the history and physical and performed a pertinent physical examination on my patient. No changes have occurred unless specified. Time Spent With Patient Time: Total time managing care of this patient today ____ minutes.
--- NOTE | 2024-03-08 07:35 | P.OP_ITS ---
Operative Note Operative Note Date of Service: 03/08/24 Narrative: Preop diagnosis: 1. Left ring finger and hand Dupuytren's contracture Postop diagnosis: Same Procedure: 1. Left ring finger Partial Dupuytren's fasciectomy 2. Left ulnar Digital nerve neurolysis Surgeon: Myrtle Gonzales MD Anesthesia: General anesthesia plus regional block Findings: Implants: None Tourniquet time: 60 minutes EBL: 5.0 ml Specimen: Left ring finger Dupuytren's cord Drains: None Complications: None Disposition: Brought to the recovery room in stable condition Plan: Follow-up in 10-14 days for wound check, suture removal and to check pathology OT appt on day of f/u to make a custom night spint and to begin OT Indications: The patient is 69 years old with a left ring finger Dupuytren's contracture with a cord extending from the middle phalanx of the ring finger ulnarly to roughly the A1 grady area of the small finger. There is also an early central cord in the palm . The risks and benefits of operative treatment, including but not limited to risk of damage to blood vessels, nerves, tendons, infection, recurrence, persistent pain or numbness, incomplete resolution of preoperative symptoms, or need for further surgery were discussed with the patient and they wished to proceed with surgery. Procedure: Once consent was obtained patient was brought back to the operating suite and placed in the operating table in a supine position. A regional block was performed by the anesthesia team. Perioperative antibiotics and anesthesia was administered by the anesthesia team. A tourniquet was applied to the proximal aspect of the left upper extremity and the limb was prepped and draped in a standard surgical fashion. The limb was elevated exsanguinated with Esmarch bandage and the tourniquet inflated to 250 mm of mercury for a total t ourniquet time of 60 minutes. I made a Joe incision extending from the middle phalanx of the left ring finger proximally and then ulnarly extending to about the A1 grady of the small finger. Again the cord extended from about the middle phalanx of the ring finger angling ulnarly to then passed within the volar aspect of the 4th webspace to about the A1 grady of the small finger. The incision was made with a 15. Blade through the skin the subcutaneous tissues. I then carefully dissected down to the level of the Dupuytren's cord beginning at the proximal aspect of the incision. This was done using tenotomy and iris scissors. Care was taken to protect the nearby neurovascular structures. I dissected the cord free from the skin, and flexor tendon sheath extending from a proximal to distal direction. I performed a neurolysis of the ulnar digital nerve and vessel dissecting the structures free from the fibrous Dupuytren's cord in this area. I then dissected the Dupuytren's cord free on its most distal aspect where it inserted into the flexor tendon sheath over the middle phalanx of the ring finger. I then grasped the cord with a mosquito hemostat and while holding tension then released in a distal to proximal direction towards the A1 grady of the small finger. Again care was taken to protect the underlying neurovascular structures. This was then dissected free from the patient placed on the back table to be sent for histopathologic review. I then turned my attention to the Dupuytren's cord in the palm. I made a chevron-type incision over the cord in line with the ring finger in the palm. I again dissected down to the level of the cord and an approximately 2 cm piece of this Dupuytren's cord was removed while care was being taken to protect the neurovascular structures.. The ring finger were able to be brought into full extension at the MCP and PIP joints. At this point the tourniquet was deflated and hemostasis obtained with a brief period of local pressure. The wound was copiously irrigated with normal saline. The skin edges were reapproximated with 5-0 Prolene suture. The wound was infiltrated with some 0.25% plain Marcaine for postop pain control and a sterile dressing and volar splint holding the small and ring fingers in extension was applied. The patient appears to have tolerated the procedure well and with no complications. All digits were well vascularized conclusion of the case.
[2024-03-08] MEDS: oxyCODONE HCl Immed Release 5 MG TABLET PO (10:40)
== END 2024-03-08 11:10 | disposition home or self-care (01) ==
PROVIDERS: PCP Internal Medicine; Visit Provider Orthopaedic Surgery
PROC: (CPT 26045; principal; 2024-03-08 07:30)
DX: M72.0 Palmar fascial fibromatosis [Dupuytren] (principal); I10 Essential (primary) hypertension; F41.1 Generalized anxiety disorder; E87.6 Hypokalemia
CPT/HCPCS: 26123; 88304; J0131; J0665; J0690; J1100; J1885; J2250; J2405; J2704; J2795; J3010

== ENCOUNTER → 2024-03-08 05:56 | Outpatient (BNV) | payer MEDICARE, SELFPAY | PROVIDERS: PCP Internal Medicine; Visit Provider Orthopaedic Surgery | DX: M72.0 Palmar fascial fibromatosis [Dupuytren] (principal) | CPT/HCPCS: 26123 ==

== ENCOUNTER 2024-03-20 11:53 | Outpatient (AMB) | payer OTHER, SELFPAY ==
--- NOTE | 2024-03-20 12:12 | MHC.OFFVIS ---
Vital Signs 03/20/24 12:13 Handedness Right Intake Visit Reasons: PO LT RF partial dup fasc 03/08/24 AR Intake Note: Elvira is a 59 year old female who presents today post operatively s/p Left Ring Finger partial Dupuytren's fasciectomy and ulnar digital nerve neurolysis 03/08/24 AR. Patient reports she is no longer having pain. Sutures removed and steri strips applied. Allergies No Known Allergies Allergy (Verified 03/20/24 12:13) HPI HPI PO LT RF partial dup fasc 03/08/24 AR: Details: Elvira is a 68 year old right hand dominant woman who returns S/P left ring finger partial Dupuytren's fasciectomy and ulnar digital nerve neurolysis, DOS: 03/08/24 She says she is doing well and denies any pain. She is happy with the results of her surgery She denies any numbness or tingling. PFSH Medical History Depression Generalized anxiety disorder Hypokalemia GERD (gastroesophageal reflux disease) HTN (hypertension), benign Obesity Surgical History H/O colonoscopy History of cholecystectomy H/O laparoscopic adjustable gastric banding Family History Mother Hypertension Glaucoma Brother History of heart artery stent Brother History of heart artery stent Brother History of heart artery stent Social History Alcohol intake: former Patient Tobacco Use Status: Never used Tobacco Current occupational status: retired Current occupation: rt hand dominant Review of Systems Const All systems reviewed & are unremarkable except as noted in HPI and below Physical Exam Const General: no acute distress and alert Orientation/consciousness: patient oriented x3 Neuro General: patient oriented x3 Extrem Other: The patient was alert oriented and in no acute distress The incision is healing well with no erythema drainage or evidence of infection. Sutures removed and Steri-Strips applied She could actively bring her fingertips ~1cm from her palm She can extend all her digits She can place her hand flat on the table MCP and PIP joint are both brought into full extension Sensation is intact Cap refill is brisk Psych Appearance: grossly normal Affect: normal affect Attitude: cooperative Assessment & Plan Assessment & Plan (1) Dupuytren's contracture of left hand: Code(s): M72.0 - Palmar fascial fibromatosis [Dupuytren] Category: Medical (2) Dupuytren's disease of palm of left hand: Code(s): M72.0 - Palmar fascial fibromatosis [Dupuytren] Category: Medical Plan Assessment & Plan: 1. Left ring finger Dupuytrens contracture, S/P partial fasciectomy DOS: 03/08/24 Pre-operatively MCP 0/PIP 20 Now MCP 0/PIP 0 The patient appears to be doing well post-operatively I educated her about the post-operative course I discussed activity modifications, she is to lift nothing heavier than a cellphone for the next two weeks I ordered OT hand therapy to work on ROM exercises. She will not need to use a night splint She will perform gentle ROM exercises at home She should avoid any underwater activities for the next 5 days She should gently massage about the incision site to reduce the risk of hypersensitivity She will follow up in 3 weeks for a ROM check. 2. Left small finger Dupuytrens cord No contracture We will manage this conservatively at this time Scribed for Myrtle Gonzales MD by timothy Maldonado, on 03/20/24 at 12:20 PM, EST. Orders: Orders OT Evaluation and Treatment Today M72.0 - Palmar fascial fibromatosis [Dupuytren] Scribe Plan - Not visible on output: Scribed for Myrtle Gonzales MD by timothy Maldonado, on [ ] at [ ], EST. Coding Level of Care Code Global (16324) Diagnoses Dupuytren's contracture of left hand M72.0 Dupuytren's disease of palm of left hand M72.0
== END 2024-03-20 12:47 | disposition home or self-care (01) ==
PROVIDERS: PCP Internal Medicine; Visit Provider Orthopaedic Surgery
DX: M72.0 Palmar fascial fibromatosis [Dupuytren] (principal)
CPT/HCPCS: 99024

== ENCOUNTER → 2024-03-20 11:53 | Outpatient (BNVA) | payer OTHER, SELFPAY | PROVIDERS: PCP Internal Medicine; Visit Provider Orthopaedic Surgery ==

== ENCOUNTER 2024-03-23 13:52 | Outpatient (RCR) | payer MEDICARE, SELFPAY ==
--- NOTE | 2024-03-23 16:14 | MHC.OT.EP ---
[address] [phone] Occupational Therapy Plan of Care Patient Name: Elvira Craig Date of Evaluation: 03/23/24 Diagnosis: Pain Location: Pain Score: 0 Pain Scale Used: Aggravating Factors: none Alleviating Factors: none Assessment:Pt is a 59 yr. old R hand dominant female who had surgery to repair a Dupytren's Contracture on 03/08/24 of her L SF ; which had been affecting her for several years. She had a follow up w/ MD and her PIP & DIP J are now at 0 of extension . Her scar is minimal in size on the volar side of her hand and SF no concerns are noted it is light in pink color and appears to be in phase 3 of scarring (proliferation). Pt had a follow up w/ MD and the bandages and stitches were removed The MD has noted night splinting will not be necessary; we did discuss skyla taping if a lag is noted by pt. (no lag today) She has been referred to skilled OT therapy for increased AROM, strength, scar care, and functional use of her L hand. 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 She was given HEP, scar care instructions, and will try to perform therapy on her own if not she will call for therapy Electronically Signed By: Ary Thomson OTR/L Please Sign and return to therapist. Thank you once again for your referral.
--- NOTE | 2024-07-09 15:54 | MHC.OT.DC ---
[address] [phone] F: [phone] Occupational Therapy Discharge Note Patient Name: Elvira Craig Provider: Myrtle Gonzales Diagnosis: Date of Surgery: 03/08/24 Date of Evaluation: Date of Discharge: Treatments to Date: 1 Cancellations to Date: No Shows to Date: Discharge Status: Independent with HEP Discharge Summary: Pt was given HEP at IE and told to follow up as needed. ROM was good at time of IE; pt did not follow up Electronically Signed By: Ary Thomson OTR/L Reviewed/agree with student documentation: N/A Therapist: Please Sign and return to therapist, thank you for your referral.
== END 2024-07-09 15:54 | disposition home or self-care (01) ==
LOC: HO.OT 13:52
PROVIDERS: PCP Internal Medicine; Visit Provider Orthopaedic Surgery
DX: M72.0 Palmar fascial fibromatosis [Dupuytren] (principal)
CPT/HCPCS: 97112; 97140; 97165; 97535

== ENCOUNTER 2024-04-10 10:48 | Outpatient (AMB) | payer OTHER, SELFPAY ==
[2024-04-10 10:54] VITALS: BMI 45.1
--- NOTE | 2024-04-10 10:54 | MHC.OFFVIS ---
Vital Signs 04/10/24 10:54 Height 5 ft 4 in Weight 263 lb BMI 45.1 Intake Visit Reasons: PO LT RF partial dup fasc 03/08/24 AR Intake Note: Elvira is a 59 year old female who presents today post operatively for ROM check s/p left ring finger partial Dupuytren's fasciectomy and ulnar digital nerve neurolysis done 03/08/24 by AR. Patient reports she is no longer having pain. Allergies No Known Allergies Allergy (Verified 04/10/24 10:55) HPI HPI PO LT RF partial dup fasc 03/08/24 AR: Details: Patient is a 69-year-old female who presents for range of motion check status post left ring finger partial Dupuytren's fasciectomy, DOS 03/08/[address] Gonzales. Today, the patient reports that she is feeling well, has no pain, and has no other acute concerns. Patient reports that he has returned to full range of motion after 1 visit with patient will therapy and continuing to do the exercises that they have prescribed for. Patient denies any numbness or tingling in the left hand. No other acute concerns or complaints at this time [facility] Medical History Depression Generalized anxiety disorder Hypokalemia GERD (gastroesophageal reflux disease) HTN (hypertension), benign Obesity Surgical History H/O colonoscopy History of cholecystectomy H/O laparoscopic adjustable gastric banding Family History Mother Hypertension Glaucoma Brother History of heart artery stent Brother History of heart artery stent Brother History of heart artery stent Social History Alcohol intake: former Patient Tobacco Use Status: Never used Tobacco Current occupational status: retired Current occupation: rt hand dominant Physical Exam Vital Signs: BMI result Body Mass Index 45.1 Extrem Other: Patient is alert, oriented, and in no acute distress. Neuro: Median, ulnar, radial nerves motor and sensory intact and sensation is normal to the tips of all digits. Vascular: Cap refill brisk Pain: Patient reports no tenderness to palpation anywhere in the hand at this time ROM: Patient has full and intact range of motion of the left hand Able to make a tight close fist Able to place left hand flat on the table Skin: Well-healed surgical scar over the volar aspect of the left ring finger General: No ecchymosis, erythema, or evidence of infection. Psych: Appears grossly normal Affect normal Attitude cooperative Assessment & Plan Assessment & Plan (1) Dupuytren's contracture of left hand: Code(s): M72.0 - Palmar fascial fibromatosis [Dupuytren] Category: Medical Plan 1. Dupuytren's contracture of the left ring finger DOS 03/08/2024 Preoperative contracture MCP 0/PIP 20 Postoperative contracture MCP 0/PIP 0 Patient is recovering well postoperatively Patient is educated about the typical recovery course Due to full and intact range of motion of the left hand, no further occupational hand therapy is indicated in this patient Patient is educated she can continue to ramp up towards normal activity in her left hand No acute follow-up necessary Patient can follow-up p.r.n. with any acute concerns Coding Level of Care Code Global (78095) Diagnoses Dupuytren's contracture of left hand M72.0
== END 2024-04-10 11:23 | disposition home or self-care (01) ==
PROVIDERS: PCP Internal Medicine
DX: M72.0 Palmar fascial fibromatosis [Dupuytren] (principal)
CPT/HCPCS: 99024

== ENCOUNTER → 2024-04-10 10:48 | Outpatient (BNVA) | payer OTHER, SELFPAY | PROVIDERS: PCP Internal Medicine ==

== ENCOUNTER 2024-06-25 09:11 | Outpatient (REF) | payer OTHER, SELFPAY ==
--- NOTE | ~2024-06-25 | US_ITS ---
EXAMINATION: US ABDOMEN COMPLETE CLINICAL INFORMATION: Upper abdominal pain. COMPARISON: CT abdomen and pelvis 05/21/2021. TECHNIQUE: Real-time imaging of the abdominal viscera. Limited visualization due to bowel gas. FINDINGS: PANCREAS: Limited visualization of pancreatic tail and head. Imaged portion of pancreatic body is unremarkable. ABDOMINAL AORTA: Limited visualization. INFERIOR VENA CAVA: Visualized portions are normal. LIVER: Increased hepatic parenchymal heterogeneity and echogenicity could be associated with hepatocellular disease/hepatic steatosis and substantially limits visualization. Correlation with liver function tests and clinical exam recommended to determine further management. GALLBLADDER: Surgically absent. COMMON BILE DUCT: Normal in caliber measuring 0.9 cm in diameter. RIGHT KIDNEY: No hydronephrosis. No renal calculi. Limited visualization. The kidney measures 11.0 cm in maximum dimension. 1.3 cm parapelvic pole cyst with benign features. There is no indication for follow-up imaging. Additional smaller peripelvic cysts identified. LEFT KIDNEY: No hydronephrosis. No renal calculi. Limited visualization. The kidney measures 10.5 cm in maximum dimension. 0.7 cm parapelvic pole cyst with benign features. There is no indication for follow-up imaging. Additional smaller peripelvic cysts identified. SPLEEN: Normal. The spleen measures 8.5 cm in maximum dimension. FREE FLUID: None. US/US abdomen complete IMPRESSION: 1. Increased hepatic parenchymal heterogeneity and echogenicity could be associated with hepatocellular disease/hepatic steatosis and substantially limits visualization. Correlation with liver function tests and clinical exam recommended to determine further management. 2. Gallbladder surgically absent. Electronically signed by: Shilpa Peace MD 06/27/2024 02:11 PM EDT
== END 2024-06-25 09:12 | disposition home or self-care (01) ==
LOC: HO.US 09:11
PROVIDERS: PCP Internal Medicine; Visit Provider Nurse Practitioner Family
DX: R10.10 Upper abdominal pain, unspecified (principal)
CPT/HCPCS: 76700